=== PATIENT | female | born 1955 | race Caucasian/White ===

== ENCOUNTER 2023-11-13 16:12 | Emergency (ER) | payer OTHER ==
[~2023-11-13] VITALS: Ht 160 cm; Wt 71.7 kg
[~2023-11-13 16:12] MED LIST: MVI PO; ONDA8TAB12 PO; caltrate PO
[2023-11-13 16:52] LABS: BASOPHILS # (AUTO) 0.01 K/uL (0.00-0.20); BASOPHILS % (AUTO) 0.2 % (0.0-5.0); EOSINOPHILS # (AUTO) 0.56 K/uL (0.00-0.70); EOSINOPHILS % (AUTO) 10.2 % (0.0-8.0); HEMATOCRIT 36.1 % (36-48); IMMATURE GRANULOCYTE ABSOLUTE 0.02 K/uL (0-1); MEAN CORPUSCULAR HEMOGLOBIN 28.9 pg (27.0-33.0); MEAN CORPUSCULAR HGB CONC 32.1 g/dL (32.0-36.0); MONOCYTES # (AUTO) 0.4 K/uL (0.1-1.0); MONOCYTES % (AUTO) 6.9 % (3.0-13.0); NEUTROPHILS # (AUTO) 2.5 K/uL (1.8-7.7); NEUTROPHILS % (AUTO) 46.3 % (40.0-77.0); PLATELET COUNT (AUTO) 191 K/uL (130-400); RED BLOOD CELL COUNT(AUTO) 4.01 MIL/uL (4.00-5.50); RED CELL DISTRIBUTION WIDTH 13.2 % (11.0-15.5); WHITE BLOOD COUNT (AUTO) 5.5 K/uL (4.8-10.8)
[2023-11-13 17:03] LABS: CREATININE 0.5 mg/dL (0.5-1.0); INR <= 0.93 (0.85-1.15); POTASSIUM 3.3 mmol/L (3.5-5.1); PROTHROMBIN TIME 10.6 SEC (9.6-11.6)
[2023-11-13 17:05] LABS: PARTIAL THROMBOPLASTIN TIME 24.9 SEC (26.3-35.5)
[2023-11-13 17:07] LABS: ALBUMIN 3.3 g/dL (3.5-5.0); BILIRUBIN,TOTAL 0.3 mg/dL (0.2-1.0); TOTAL PROTEIN, SERUM 6.7 g/dL (6.0-8.3)
[2023-11-13] MEDS ORDERED: IBUP-2077 PO (18:17)
[2023-11-13 18:19] VITALS: BP 141/56; PULSE 72; RESP 17; O2SAT 100
[2023-11-13] MEDS: POTASSIUM BICARB/CIT AC 25 MEQ TABLET.EFF PO ONE (18:32)
== END 2023-11-13 18:37 | disposition home or self-care (01) ==
LOC: EDH 16:12
DX: I82.811 Embolism and thrombosis of superficial veins of right lower extremity (principal); Z79.899 Other long term (current) drug therapy; Z90.49 Acquired absence of other specified parts of digestive tract; Z90.89 Acquired absence of other organs; Z98.890 Other specified postprocedural states; Z88.0 Allergy status to penicillin; Z88.1 Allergy status to other antibiotic agents; Z88.2 Allergy status to sulfonamides; Z88.5 Allergy status to narcotic agent; Z88.6 Allergy status to analgesic agent; Z88.8 Allergy status to other drugs, medicaments and biological substances
CPT/HCPCS: 36415; 80053; 85025; 85610; 85730; 93971

== ENCOUNTER 2024-06-22 14:58 | Inpatient (IN) | payer OTHER, MEDICARE ==
[~2024-06-22] VITALS: Ht 152.4 cm; Wt 70.9 kg
[~2024-06-22 14:58] MED LIST changes: +IBUP-2077 PO; +ONDA-245 PO; -ONDA8TAB12 PO
--- NOTE | 2024-06-22 15:38 | ERN ---
ED Note History of Present Illness Stated Complaint: ABD PAIN Chief Complaint: Abdominal Pain Time Seen by MD: 15:08 Dictation: Patient is here with complaints of having liquid diarrhea stools for four days with periumbilical pain. She denies nausea vomiting no change in urination no fever no chills. She states she has had a partial colon resection by Dr. Raymond several years ago. No chest pain no back pain no SOB. Allergies: Coded Allergies: iodine (Unverified Allergy, Severe, 10/11/23) Penicillins (Unverified Allergy, Unknown, 10/11/23) azithromycin (Unverified Allergy, Unknown, 10/11/23) latex (Unverified Allergy, Unknown, 10/11/23) mirabegron (Unverified Allergy, Unknown, 10/11/23) morphine (Unverified Allergy, Unknown, 10/11/23) nitrofurantoin (Unverified Allergy, Unknown, 10/11/23) sulfamethoxazole (Unverified Allergy, Unknown, 10/11/23) trimethoprim (Unverified Allergy, Unknown, 10/11/23) Home Meds Reported Medications Cholestyramine (with Sugar) (Cholestyramine Packet) 4 Gram Powd.pack, 1 PACKET PO BID for 30 Days, #30 PACKET 0 Refills 06/23/24 Discontinued Reported Medications [Mvi] No Conflict Check, 1 TAB PO DAILY 10/11/23 [caltrate] No Conflict Check, 1 TAB PO DAILY 10/11/23 Ondansetron (Ondansetron Odt) 8 Mg Tab.rapdis, 8 MG PO TID PRN for NAUSEA/VOMITING, TAB 10/11/23 Discontinued Scripts Ibuprofen (Ibuprofen 800 mg Tab) 800 Mg Tab, 800 MG PO Q6H PRN for PAIN, #30 TAB Prov:ANDRE MERAZ STORE RECEIVING CLERK 11/13/23 Past Medical History Past Medical History: Diverticulitis Additional Past Medical Hx: COLITIS Surgical History: Appendectomy, Hysterectomy, Tonsillectomy, Cholecystectomy Surgical History Other: COLON RESECTION History: Not Applicable RN Note Reviewed/Agreed w/PFSH: Yes Review of System Dictation CONSTITUTIONAL: Negative except for HPI HEAD/FACE: Negative except for HPI EENT: Negative except for HPI RESPIRATORY: Negative except for HPI GASTROINTESTINAL/ABDOMINAL: Negative except for HPI periumbilical pain with diarrhea four days GENITOURINARY: Negative except for HPI MUSCULOSKELETAL: Negative except for HPI INTEGUMENTARY: Negative except for HPI NEUROLOGICAL/PSYCH: Negative except for HPI HEMATOLOGIC/LYMPHATIC: Negative except for HPI All Systems Negative, Except as noted above. 13 point review of systems assessed and all negative except for above. Initial Vital Sign VS Vital Signs Date Time Temp Pulse Resp B/P (MAP) Pulse Ox O2 Delivery O2 Flow Rate FiO2 06/22/24 14:59 98.1 68 18 135/60 99 Room Air 0 06/22/24 15:22 21 Physical Exam Dictation Vital Signs reviewed General Appearance: Alert, oriented x 3, moderate acute distress, well devel oped, nourished. Head and Face: non-traumatic. Eyes: PERRL, pink conjunctivas, eyelid no trauma, anterior chamber with arcus se nilis. Ears: Pinnas intact and no signs of trauma or erythema ear canals clear and no discharge TM no erythema Nose: No discharge, no bleeding. Oropharynx: Mouth normal, tongue pink, pharynx clear,no erythema, tonsils no exudates, no abscesses noted, mucous membrane moist Neck: Supple, non-tender, no thyromegaly, no masses, no JVD, no bruits Breast:Deferred Chest:No tenderness, no crepitus, no paradoxical movement, no retractions Lungs:Clear, well-ventilated, symmetric, no rales, no wheezing, no rhonchi, no stridor, good breath sounds bilaterally Heart: Regular rate, regular rhythm, no murmur, no gallops Vascular: no peripheral edema, Abdomen: Soft, positive bowel sounds, nondistended, no guarding, Moderate periumbilical pain tenderness no rebound. Patient has a surgically absent appendix. Rectal: Deferred Genital: Deferred Neurological: Normal speech, motor function intact, sensory function intact Musculoskeletal: Neck nontender, full range of motion, back nontender, full range of motion, Extremities: nontender, full range of motion Skin: Color pink, dry, no turgor, no rash, no lacerations, no abrasions, no contusions. Lymphatic: Deferred Results (Laboratory/Radiology) Laboratory/Radiology Laboratory Tests Test 06/22/24 15:18 06/22/24 17:05 06/22/24 21:30 06/22/24 23:27 White Blood Count 6.9 K/uL (4.8-10.8) Red Blood Count 4.38 MIL/uL (4.00-5.50) Hemoglobin 12.7 g/dL (12.0-16.0) Hematocrit 39.4 % (36-48) Mean Corpuscular Volume 90.0 fL (79-99) Mean Corpuscular Hemoglobin 29.0 pg (27.0-33.0) Mean Corpuscular Hemoglobin Concent 32.2 g/dL (32.0-36.0) Red Cell Distribution Width 13.0 % (11.0-15.5) Platelet Count 187 K/uL (130-400) Mean Platelet Volume 9.7 fL (7.5-10.5) Immature Granulocyte % (Auto) 0.1 % (0-1) Neutrophils (%) (Auto) 53.3 % (40.0-77.0) Lymphocytes (%) (Auto) 39.1 % (21.0-51.0) Monocytes (%) (Auto) 5.5 % (3.0-13.0) Eosinophils (%) (Auto) 1.7 % (0.0-8.0) Basophils (%) (Auto) 0.3 % (0.0-5.0) Neutrophils # (Auto) 3.7 K/uL (1.8-7.7) Lymphocytes # (Auto) 2.7 K/uL (1.0-4.8) Monocytes # (Auto) 0.4 K/uL (0.1-1.0) Eosinophils # (Auto) 0.12 K/uL (0.00-0.70) Basophils # (Auto) 0.02 K/uL (0.00-0.20) Absolute Immature Granulocyte (auto 0.01 K/uL (0-1) Nucleated Red Blood Cells 0.0 % (0.0-0.19) Sodium Level 145 mmol/L (136-145) Potassium Level 4.4 mmol/L (3.5-5.1) Chloride Level 105 mmol/L (101-111) Carbon Dioxide Level 31 mmol/L (21-32) Blood Urea Nitrogen 20 mg/dL (7-18) H Creatinine 0.5 mg/dL (0.5-1.0) Glomerular Filtration Rate Calc 101 mL/min (>90) Random Glucose 103 mg/dL (70-105) Total Calcium 9.7 mg/dL (8.5-10.1) Total Bilirubin 0.5 mg/dL (0.2-1.0) Direct Bilirubin 0.1 mg/dL (0.0-0.3) Aspartate Amino Transf (AST/SGOT) 44 U/L (10-37) H Alanine Aminotransferase (ALT/SGPT) 58 U/L (12-78) Alkaline Phosphatase 88 U/L (50-136) Total Protein 6.9 g/dL (6.0-8.3) Albumin 3.5 g/dL (3.5-5.0) Lipase 38 U/L (16-77) Urine Color STRAW (YELLOW) Urine Appearance CLEAR (CLEAR) Urine pH 5.5 (5.0-8.0) Urine Specific [place] 1.006 (1.001-1.031) Urine Protein NEGATIVE mg/dL (NEGATIVE) Urine Glucose (UA) NEGATIVE mg/dL (NEGATIVE) Urine Ketones NEGATIVE mg/dL (NEGATIVE) Urine Occult Blood NEGATIVE (NEGATIVE) Urine Nitrate NEGATIVE (NEGATIVE) Urine Bilirubin NEGATIVE mg/dL (NEGATIVE) Urine Urobilinogen 0.2 mg/dL (0.2-1.0) Urine Leukocyte Esterase NEGATIVE Felicia/uL Whole Blood Glucose 82 MG/DL (70-110) Influenza Type A Antigen Negative For Type A Influenza Type B Antigen Negative For Type B SARS-CoV-2, RNA, NAAT NEGATIVE SARS CoV-2 Test 06/23/24 04:15 06/23/24 11:07 06/23/24 15:43 White Blood Count 5.1 K/uL (4.8-10.8) # Red Blood Count 4.07 MIL/uL (4.00-5.50) Hemoglobin 12.0 g/dL (12.0-16.0) Hematocrit 36.8 % (36-48) Mean Corpuscular Volume 90.4 fL (79-99) Mean Corpuscular Hemoglobin 29.5 pg (27.0-33.0) Mean Corpuscular Hemoglobin Concent 32.6 g/dL (32.0-36.0) Red Cell Distribution Width 12.8 % (11.0-15.5) Platelet Count 143 K/uL (130-400) Mean Platelet Volume 10.0 fL (7.5-10.5) Nucleated Red Blood Cells 0.0 % (0.0-0.19) Sodium Level 144 mmol/L (136-145) Potassium Level 3.9 mmol/L (3.5-5.1) Chloride Level 108 mmol/L (101-111) Carbon Dioxide Level 28 mmol/L (21-32) Blood Urea Nitrogen 11 mg/dL (7-18) Creatinine 0.5 mg/dL (0.5-1.0) Glomerular Filtration Rate Calc 101 mL/min (>90) Random Glucose 77 mg/dL (70-105) Hemoglobin A1c 6.1 % (4.0-6.0) H Estimated Average Glucose (eAG) 128 mg/dL (70-126) H Total Calcium 9.1 mg/dL (8.5-10.1) Phosphorus Level 4.3 mg/dL (2.5-4.9) Magnesium Level 1.90 mg/dL (1.80-2.40) Total Bilirubin 0.8 mg/dL (0.2-1.0) # Aspartate Amino Transf (AST/SGOT) 29 U/L (10-37) Alanine Aminotransferase (ALT/SGPT) 48 U/L (12-78) Alkaline Phosphatase 78 U/L (50-136) Total Protein 6.0 g/dL (6.0-8.3) Albumin 3.0 g/dL (3.5-5.0) L Thyroid Stimulating Hormone (TSH) 5.23 uIU/mL (0.36-3.74) H Whole Blood Glucose 85 MG/DL (70-110) 189 MG/DL (70-110) #H CT ABDOMEN/PELVIS W/O CONTRAST CLINICAL HISTORY: Periumbilical pain tenderness with liquid stools for four days COMPARISON: None TECHNIQUE: Sequential axial images of abdomen and pelvis without contrast and with sagittal and coronal reconstructions. CT was performed with one or more of the following dose reduction techniques: automated exposure control, adjustment of the mA and/or kV according to patient size, or use of iterative reconstruction technique FINDINGS: Lung bases are clear. There is mild pneumobilia secondary to prior cholecystectomy. The spleen is unremarkable. The pancreas and adrenal glands are unremarkable. The kidneys are within normal limits. Note is made of stable bilateral parapelvic cysts. The bladder is unremarkable. There are fluid-filled loops of small bowel and partially fluid filled loops of large bowel with no identified bowel obstruction. The uterus is surgically absent. Note is made of clips in the anterior pelvic wall from prior surgery. There is no free air or free fluid. There is no bulky abdominal or retroperitoneal lymphadenopathy. Note is made of mild diffuse degenerative changes of spine. IMPRESSION: Findings most consistent with enteritis. Pneumobilia from prior cholecystectomy. Labs Reviewed?: Yes ED Course ED Course Orders Procedure Category Date Status Time Cbc With Differential LAB 06/22/24 Complete 15:29 Urinalysis Profile LAB 06/22/24 Complete 15:29 Stool Panel Gi By Pcr LAB 06/22/24 In Process 15:29 0.9%Nacl 1000ml (Ns PHA 06/22/24 Complete 1000ml) 15:30 Ketorolac PHA 06/22/24 Complete Tromethamine 30mg/Ml 15:30 Stool Culture JUNIOR 06/22/24 In Process 15:29 Ct Abdomen/Pelvis W/O CT 06/22/24 Resulted Contrast 15:29 Lipase LAB 06/22/24 Complete 15:29 Basic Metabolic Panel LAB 06/22/24 Complete 15:29 Edm Admit Bridge Order ADM 06/22/24 Transmitted 18:34 Gastroenterology CONPHYSVC 06/22/24 Transmitted Consult 18:38 Admit Orders ADM 06/22/24 Transmitted 18:47 Vital Signs Every 4 CPOE 06/22/24 Transmitted Hours 19:11 I&O Q Shift CPOE 06/22/24 Transmitted 19:11 Activity: Ad Gricelda CPOE 06/22/24 Transmitted 19:11 Heart Healthy Diet DIET 06/23/24 Transmitted Breakfast O2 Order RT 06/22/24 Transmitted 19:11 Cbc Without LAB 06/23/24 Complete Differential 04:00 Lactated Ringers PHA 06/22/24 In Process 1000ml (Lactated 19:30 Enoxaparin Sodium 40 PHA 06/23/24 In Process Mg/0.4 Ml (Lovenox) 09:00 Acetaminophen 325 Tab PHA 06/22/24 In Process (Tylenol 325mg Tab 19:30 Acetaminophen 650mg PHA 06/22/24 In Process Supp (Tylenol 650mg 19:30 Docusate Sodium 100 PHA 06/22/24 In Process Mg Cap (Colace 100mg 19:30 Temazepam 15 Mg Cap PHA 06/22/24 In Process (Restoril 15 Mg Cap) 19:30 Ondansetron 4mg Inj PHA 06/22/24 In Process (Zofran 4mg Inj) 19:30 Hydralazine 20mg Inj PHA 06/22/24 In Process (Apresoline 20mg In 19:30 Hydromorphone 1 Mg PHA 06/22/24 In Process Inj (Dilaudid 1mg Inj 19:30 Initiate CURLY 06/22/24 In Process Hyperglycemia Protoco 19:11 Insulin Regular, PHA 06/22/24 In Process Human 3ml (Humulin R 21:00 Lipase LAB 06/22/24 Complete 19:16 Hepatic Function Panel LAB 06/22/24 Complete 19:16 Influenza Type A & B, LAB 06/22/24 Complete Rapid 19:16 Covid Rna Naat LAB 06/22/24 Complete 19:16 Initiate Hypoglycemia CURLY 06/22/24 In Process Protocol 19:16 Dextrose 50%-Water PHA 06/22/24 In Process (D50w) 19:30 Glucagon 1mg Kit PHA 06/22/24 In Process (Glucagon 1mg Kit) 19:30 Magnesium 2gm Premix PHA 06/22/24 In Process 50ml (Magnesium 2gm 19:30 Initiate Po CURLY 06/22/24 In Process Hypokalemia Protoc 19:16 Potassium Chloride PHA 06/22/24 In Process 20meq/100ml (Potassiu 19:30 Potassium Chl 10% PHA 06/22/24 In Process Elixir 20meq (Kcl 10% 19:30 Potassium Chloride PHA 06/22/24 In Process 20meq Er (K-Dur/Klor- 19:30 Notify Physician If CPOE 06/22/24 Transmitted There Is 19:16 Notify Md On The Next CPOE 06/22/24 Transmitted 19:16 Notify Md On The CPOE 06/22/24 Transmitted Next(Cont.) 19:16 Hemoglobin A1c LAB 06/23/24 Complete 04:00 Pantoprazole 40mg Inj PHA 06/22/24 In Process (Protonix 40mg Inj 21:00 *Nursing CPOE 06/22/24 Transmitted Communication: 19:22 Lipase LAB 06/22/24 Complete 15:18 Simethicone (Mylicon) PHA 06/22/24 In Process 21:30 Metronidazole PHA 06/22/24 In Process 500mg/100ml Bag 22:30 Comprehensive LAB 06/23/24 Complete Metabolic Panel 04:00 Magnesium LAB 06/23/24 Complete 04:15 Phosphorus LAB 06/23/24 Complete 04:15 Thyroid Stimulating LAB 06/23/24 Complete Hormone 04:15 Transfer To: [facility] 06/23/24 Transmitted 12:34 Magnesium LAB 06/24/24 Verified 04:00 Phosphorus LAB 06/24/24 Verified 04:00 Cbc With Differential LAB 06/24/24 Verified 04:00 Cbc With Differential LAB 06/25/24 Verified 04:00 Cbc With Differential LAB 06/26/24 Verified 04:00 Basic Metabolic Panel LAB 06/24/24 Verified 04:00 Basic Metabolic Panel LAB 06/25/24 Verified 04:00 Basic Metabolic Panel LAB 06/26/24 Verified 04:00 Current Medications Medications (Trade) Dose Ordered Sig/Domenica Route PRN Reason Start Time Stop Time Status Last Admin Dose Admin Ketorolac Tromethamine (toRADol) 30 mg ONCE ONCE IVP 06/22/24 15:30 06/22/24 15:31 DC 06/22/24 15:54 Sodium Chloride 1,000 ml @ 0 mls/hr ONCE ONCE IV 06/22/24 15:30 06/22/24 15:31 DC 06/22/24 15:54 Vital Signs Date Time Temp Pulse Resp B/P (MAP) Pulse Ox O2 Delivery O2 Flow Rate FiO2 06/23/24 11:54 98.8 67 18 118/62 96 Room Air 06/23/24 08:10 96 Room Air* 0 06/23/24 08:00 98.4 56 17 126/75 96 Room Air 06/23/24 04:09 98.1 54 17 133/68 100 Room Air 06/23/24 00:20 97.9 59 20 130/64 99 Room Air 06/23/24 00:00 Room Air* 0 06/22/24 23:49 97.9 56 18 120/61 97 Room Air* 0 06/22/24 19:45 97.7 54 18 125/63 96 Room Air* 0 06/22/24 15:22 98.1 65 18 132/53 98 Room Air* 0 06/22/24 14:59 98.1 68 18 135/60 99 Room Air 0 1728, patient continues to be in pain despite fluids and ketorolac. She has allergies to morphine and states she has had three diarrhea stools with urine since she has been here however we have not been able to collect a specimen. I advised patient I will admit her for intractable abdominal pain diarrhea so that they can get a specimen and she can get GI consultation tomorrow. She agreed 1834, spoke with [facility] hospitalist and reviewed CT labs and interventions for pain. She accepted patient. She is aware we are pending stools for culture C diff and GI PCR Medical Decision Making MDM MDM: Differential diagnosis: Diarrhea versus infectious diarrhea versus urinary tract infection/electrolyte imbalance/dehydration/diverticulitis Rationale: Tests considered and ordered secondary to shared decision making include: labs and radiology Previous outside records reviewed: Old ER visits. Risk of complication and/or morbidity or mortality of patient management: Mild Medications-Per medication reconciliation Need for hospitalization: Patient does meet criteria for hospitalization. We will admit patient for intractable abdominal pain/cramping and diarrhea Need for emergency major/minor surgery: No There are no social concerns with this patient. Prescription drug management Prescriptions will include symptomatic care Patient's prior external medical records from other ER visits were reviewed by me as indicated. Prior testing and results from previous visits were reviewed. Prior tests were taken into account with medical decision making and resource utilization, independent historian/historians were used to obtain complete medical history. I independently interpreted the test that were performed, results were reviewed by me and considered findings on radiology if ordered. Medical management and examination interpretation discussions were had by me with other qualified healthcare professionals as indicated for the patient's care. DX & DISP Disposition: Inpatient Decision to Admit Time: 17:28 Departure Impression: Primary Impression: Intractable diarrhea Additional Impressions: Intractable abdominal pain, Dehydration Condition: Stable Referrals: DILMA CLEMENTE M.D. (PCP) Time of Disposition: 17:29 I have reviewed the case, and I agree with, Diagnosis and Plan I performed this substantive portion of this visit. I have reviewed and personally made and approve the management plan that is documented in the note by myself or the RAZA. I acknowledge full responsibility for the patient's management plan. ANDRE MERAZ NP Jun 22, 2024 15:38 JOBY REA MD Jun 23, 2024 18:33
[2024-06-22 15:44] LABS: BASOPHILS # (AUTO) 0.02 K/uL (0.00-0.20); BASOPHILS % (AUTO) 0.3 % (0.0-5.0); EOSINOPHILS # (AUTO) 0.12 K/uL (0.00-0.70); EOSINOPHILS % (AUTO) 1.7 % (0.0-8.0); HEMATOCRIT 39.4 % (36-48); IMMATURE GRANULOCYTE ABSOLUTE 0.01 K/uL (0-1); LYMPHOCYTES # (AUTO) 2.7 K/uL (1.0-4.8); LYMPHOCYTES % (AUTO) 39.1 % (21.0-51.0); MEAN CORPUSCULAR HGB CONC 32.2 g/dL (32.0-36.0); MONOCYTES # (AUTO) 0.4 K/uL (0.1-1.0); MONOCYTES % (AUTO) 5.5 % (3.0-13.0); NEUTROPHILS # (AUTO) 3.7 K/uL (1.8-7.7); NEUTROPHILS % (AUTO) 53.3 % (40.0-77.0); PLATELET COUNT (AUTO) 187 K/uL (130-400); RED BLOOD CELL COUNT(AUTO) 4.38 MIL/uL (4.00-5.50); WHITE BLOOD COUNT (AUTO) 6.9 K/uL (4.8-10.8)
[2024-06-22] MEDS: ketOROlac 30MG VIAL (30MG/ML) IVP ONE (15:54)
[2024-06-22] MEDS: 0.9%NACL 1000ML 1,000 ML IV ONE (15:54)
[2024-06-22 16:00] LABS: CREATININE 0.5 mg/dL (0.5-1.0); POTASSIUM 4.4 mmol/L (3.5-5.1)
--- NOTE | 2024-06-22 17:03 | HMCIMG ---
CT ABDOMEN/PELVIS W/O CONTRAST CLINICAL HISTORY: Periumbilical pain tenderness with liquid stools for four days COMPARISON: None TECHNIQUE: Sequential axial images of abdomen and pelvis without contrast and with sagittal and coronal reconstructions. CT was performed with one or more of the following dose reduction techniques: automated exposure control, adjustment of the mA and/or kV according to patient size, or use of iterative reconstruction technique FINDINGS: Lung bases are clear. There is mild pneumobilia secondary to prior cholecystectomy. The spleen is unremarkable. The pancreas and adrenal glands are unremarkable. The kidneys are within normal limits. Note is made of stable bilateral parapelvic cysts. The bladder is unremarkable. There are fluid-filled loops of small bowel and partially fluid filled loops of large bowel with no identified bowel obstruction. The uterus is surgically absent. Note is made of clips in the anterior pelvic wall from prior surgery. There is no free air or free fluid. There is no bulky abdominal or retroperitoneal lymphadenopathy. Note is made of mild diffuse degenerative changes of spine. IMPRESSION: Findings most consistent with enteritis. Pneumobilia from prior cholecystectomy.
[2024-06-22 17:14] LABS: APPEARANCE,URINE CLEAR (CLEAR); BILIRUBIN,URINE NEGATIVE (NEGATIVE); GLUCOSE, URINE (UA) NEGATIVE (NEGATIVE); KETONES,URINE NEGATIVE (NEGATIVE); LEUKOCYTE ESTERASE ,URINE NEGATIVE Leu/uL (NEGATIVE); NITRATE,URINE NEGATIVE (NEGATIVE); OCCULT BLOOD,URINE NEGATIVE (NEGATIVE); PH,URINE 5.5 (5.0-8.0); PROTEIN,URINE NEGATIVE (NEGATIVE); UROBILINOGEN,URINE 0.2 mg/dL (0.2-1.0)
[2024-06-22 17:16] LABS: ADD UA MICROSCOPIC NO; COLOR,URINE STRAW (YELLOW)
[2024-06-22] MEDS ORDERED: TEMAZepam 15 MG CAPSULE PO PRN (19:30)
[2024-06-22] MEDS ORDERED: GLUCAGON 1MG KIT 1 MG ML IM PRN (19:30)
[2024-06-22] MEDS ORDERED: acetaMINOPHEN 650 MG SUPPOSITORY RC PRN (19:30)
[2024-06-22] MEDS ORDERED: doCUSate SODIUM 100 MG CAP PO PRN (19:30)
[2024-06-22] MEDS ORDERED: MAGNESIUM 2GM PREMIX 50ML 50 ML IV PRN (19:30)
[2024-06-22] MEDS ORDERED: PoTASSium chloRIDE 20MEQ/100ML 100 ML IV PRN (19:30)
[2024-06-22] MEDS ORDERED: hydrALAZine 20MG/ML VIAL IV PRN (19:30)
[2024-06-22] MEDS ORDERED: ondanSETRON 4MG INJ IVP PRN (19:30)
[2024-06-22] MEDS ORDERED: hydroMORPHone 1 MG INJ IVP PRN (19:30)
[2024-06-22] MEDS ORDERED: DEXTROSE 50%-WATER 50 ML DISP.SYRIN IV PRN (19:30)
[2024-06-22] MEDS ORDERED: acetaMINOPHEN 325 MG TAB PO PRN (19:30)
[2024-06-22] MEDS ORDERED: PoTASSium chl 10% ELIXIR 20MEQ 20 MEQ/15 ML UDCUP PO PRN (19:30)
[2024-06-22 19:50] LABS: ALBUMIN 3.5 g/dL (3.5-5.0); BILIRUBIN,DIRECT 0.1 mg/dL (0.0-0.3); BILIRUBIN,TOTAL 0.5 mg/dL (0.2-1.0); TOTAL PROTEIN, SERUM 6.9 g/dL (6.0-8.3)
[2024-06-22] MEDS: INSULIN humuLIN R 100 UNIT/ML 3ML SQ SCH (21:00)
--- NOTE | 2024-06-22 21:22 | NUR ---
[employer] ZIFF DAVIS AT BEDSIDE
--- NOTE | 2024-06-22 21:44 | HP ---
[facility] HISTORY AND PHYSICAL Date of Service: Jun 22, 2024 Time of Service: 21:43 PCP: Savanah Lowry NP Outpatient GI: Dr. Arias Inpatient GI PCP: Dr. Reyes and Dr. Brain Caban HISTORY OF PRESENT ILLNESS: Ms. Moore is a 69-year-old female with a history of diverticulitis, diverticulosis, pancreatitis, colitis, IBS, colectomy, partial colon resection who presented to [facility] for evaluation of liquid diarrhea stools for four days with periumbilical and upper abdominal pain. The patient reported that the intermittent upper abdominal pain feels like a ball of gas develops then gets a twisting sensation then it goes away. She has had surgical history of appendectomy, hysterectomy, cholecystectomy, colon resection, and tonsillectomy. She stated that the colectomy in [address] Raymond several years ago. Her GI doctor is Dr. Arias at [facility]. The colon resection was done by Dr. Raymond. Patient denied any nausea, vomiting, change in urine, fever, chills, any other pain, problem or concern. ED provider reports that patient continued with pain despite Toradol. ED also administered [address] abdomen and pelvis without contrast: Findings most consistent with enteritis. Pneumobilia from prior cholecystectomy. UA negative. Labs: CBC WNL. Abnormal lab results: BUN 20, AST 44. ED provider request patient be admitted with the diagnosis intractable abdominal pain intractable diarrhea, and dehydration. Patient was admitted under the gavi lyst team. I assessed the patient at bedside in room ED 18. Patient appeared comfortable, breathing was even unlabored, in no distress. Patient denied pain during my evaluation. Patient reports the pain is intermittent and when it comes it is severe. Patient states she has been on cholestyramine for a while already which helps her diarrhea but has not work this time. She reports that she took Imodium also with no improvement of the diarrhea. I informed the patient of labs, diagnostics, and plan of care. I addressed her multiple questions. She verbalized understanding and is in agreement with plan. Plan and assessment are listed below. REVIEW OF SYSTEMS 12-point ROS reviewed with patient. All pertinent positives mentioned above. Otherwise negative, non-pertinent, noncontributory. PAST MEDICAL HISTORY: As mentioned above PAST SURGICAL HISTORY: Appendectomy, hysterectomy, tonsillectomy, cholecystectomy, colon resection PAST SOCIAL HISTORY: Patient denied: Alcohol, tobacco, illicit drug use FAMILY HISTORY: Noncontributory Coded Allergies: iodine (Unverified Allergy, Severe, 10/11/23) Penicillins (Unverified Allergy, Unknown, 10/11/23) azithromycin (Unverified Allergy, Unknown, 10/11/23) latex (Unverified Allergy, Unknown, 10/11/23) mirabegron (Unverified Allergy, Unknown, 10/11/23) morphine (Unverified Allergy, Unknown, 10/11/23) nitrofurantoin (Unverified Allergy, Unknown, 10/11/23) sulfamethoxazole (Unverified Allergy, Unknown, 10/11/23) trimethoprim (Unverified Allergy, Unknown, 10/11/23) PHYSICAL EXAM GENERAL APPEARANCE: The patient is awake, alert, and oriented, in no acute cardiopulmonary distress. NEUROLOGICAL: Cranial nerves II-XII grossly intact. Motor is 5/5 in bilateral upper and lower extremities proximal to distal. No sensory deficits. HEENT: Face is symmetric. Pupils are equal and reactive. Extraocular movements are intact. NECK: Supple. No JVD. No thyromegaly. No submental, submandibular, pre- /postauricular, occipital or supraclavicular lymphadenopathy. CHEST: Normal chest expansion. No Telemetry. LUNGS: Absence of any rales, rhonchi or any wheezing. CARDIOVASCULAR: Regular. S1 and S2 normal. No appreciable rubs, murmurs or gallops. ABDOMEN: Soft and nondistended. Generalized abdominal tenderness. There is no rebound, voluntary guarding, or rigidity. : Deferred. No Araiza. EXTREMITIES: Non-edematous and not cyanotic. No clubbing. Good capillary refill. SKIN: No skin breakdown. Vital Sign (Last 24 Hours) 06/22/24 15:22 Temp 98.1 Pulse 65 Resp 18 B/P (MAP) 132/53 Pulse Ox 98 O2 Delivery Room Air* O2 Flow Rate 0 FiO2 21 LABS: Laboratory: Test 06/22/24 21:30 06/22/24 17:05 06/22/24 15:18 Range/Units Whole Blood Glucose 82 70-110 MG/DL Urine Color STRAW YELLOW Urine Appearance CLEAR CLEAR Urine pH 5.5 5.0-8.0 Urine Specific [place] 1.006 1.001-1.031 Urine Protein NEGATIVE NEGATIVE mg/dL Urine Glucose (UA) NEGATIVE NEGATIVE mg/dL Urine Ketones NEGATIVE NEGATIVE mg/dL Urine Occult Blood NEGATIVE NEGATIVE Urine Nitrate NEGATIVE NEGATIVE Urine Bilirubin NEGATIVE NEGATIVE mg/dL Urine Urobilinogen 0.2 0.2-1.0 mg/dL Urine Leukocyte Esterase NEGATIVE NEGATIVE Felicia/uL White Blood Count 6.9 4.8-10.8 K/uL Red Blood Count 4.38 4.00-5.50 MIL/uL Hemoglobin 12.7 12.0-16.0 g/dL Hematocrit 39.4 36-48 % Mean Corpuscular Volume 90.0 79-99 fL Mean Corpuscular Hemoglobin 29.0 27.0-33.0 pg Mean Corpuscular Hemoglobin Concent 32.2 32.0-36.0 g/dL Red Cell Distribution Width 13.0 11.0-15.5 % Platelet Count 187 130-400 K/uL Mean Platelet Volume 9.7 7.5-10.5 fL Immature Granulocyte % (Auto) 0.1 0-1 % Neutrophils (%) (Auto) 53.3 40.0-77.0 % Lymphocytes (%) (Auto) 39.1 21.0-51.0 % Monocytes (%) (Auto) 5.5 3.0-13.0 % Eosinophils (%) (Auto) 1.7 0.0-8.0 % Basophils (%) (Auto) 0.3 0.0-5.0 % Neutrophils # (Auto) 3.7 1.8-7.7 K/uL Lymphocytes # (Auto) 2.7 1.0-4.8 K/uL Monocytes # (Auto) 0.4 0.1-1.0 K/uL Eosinophils # (Auto) 0.12 0.00-0.70 K/uL Basophils # (Auto) 0.02 0.00-0.20 K/uL Absolute Immature Granulocyte (auto 0.01 0-1 K/uL Nucleated Red Blood Cells 0.0 0.0-0.19 % Sodium Level 145 136-145 mmol/L Potassium Level 4.4 3.5-5.1 mmol/L Chloride Level 105 101-111 mmol/L Carbon Dioxide Level 31 21-32 mmol/L Blood Urea Nitrogen 20 H 7-18 mg/dL Creatinine 0.5 0.5-1.0 mg/dL Glomerular Filtration Rate Calc 101 >90 mL/min Random Glucose 103 70-105 mg/dL Total Calcium 9.7 8.5-10.1 mg/dL Total Bilirubin 0.5 0.2-1.0 mg/dL Direct Bilirubin 0.1 0.0-0.3 mg/dL Aspartate Amino Transf (AST/SGOT) 44 H 10-37 U/L Alanine Aminotransferase (ALT/SGPT) 58 12-78 U/L Alkaline Phosphatase 88 50-136 U/L Total Protein 6.9 6.0-8.3 g/dL Albumin 3.5 3.5-5.0 g/dL Lipase 38 16-77 U/L Current Medications Medications (Trade) Dose Ordered Sig/Domenica Route PRN Reason Start Time Stop Time Status Last Admin Dose Admin Acetaminophen (TYLenol 325MG TAB) 650 mg Q6H PRN PO FEVER/MILD PAIN LEVEL 1-3 06/22/24 19:30 07/22/24 19:29 Acetaminophen (TYLenol 650MG SUPPOSITORY) 650 mg Q6H PRN RC FEVER / MILD PAIN 1-3 IF NPO 06/22/24 19:30 07/22/24 19:29 Dextrose (D50w) 50 ml AD PRN IV HYPOGLYCEMIA PROTOCOL 06/22/24 19:30 07/22/24 19:29 Docusate Sodium (COLace 100MG CAP) 100 mg BID PRN PO c 06/22/24 19:30 07/22/24 19:29 Enoxaparin Sodium (Lovenox) 40 mg DAILY SQ 06/23/24 09:00 07/23/24 08:59 Glucagon (Glucagon 1mg Kit) 1 mg AD PRN IM HYPOGLYCEMIA PROTOCOL 06/22/24 19:30 07/22/24 19:29 Hydralazine HCl (APRESOLine 20MG INJ) 10 mg Q2H PRN IV SBP GREATER THAN 160 06/22/24 19:30 07/22/24 19:29 Hydromorphone HCl (DiLAUDid 1MG INJ) 0.5 mg Q4H PRN IVP SEVERE PAIN (7-10) 06/22/24 19:30 06/27/24 19:29 Insulin Human Regular (humuLIN R 100 UNIT/ML 3ML) INSULIN SLIDING SCAL... ACHS SQ 06/22/24 21:00 07/22/24 20:59 Lactated Ringer's 1,000 ml @ 100 mls/hr Q10H IV 06/22/24 19:30 07/22/24 19:29 Magnesium Sulfate 50 ml @ 0 mls/hr PROTOCOL PRN IV MAGNESIUM PROTOCOL 06/22/24 19:30 07/22/24 19:29 Ondansetron HCl (zoFRAN 4MG INJ) 4 mg Q6H PRN IVP NAUSEA/VOMITING 06/22/24 19:30 07/22/24 19:29 Pantoprazole Sodium (PROTonix 40MG INJ) 40 mg BID IVP 06/22/24 21:00 07/22/24 20:59 Potassium Chloride 100 ml @ 100 mls/hr AD PRN IV POTASSIUM PROTOCOL 06/22/24 19:30 07/22/24 19:29 Potassium Chloride (K-Dur/Klor-Con 20meq) 20 meq AD PRN PO POTASSIUM PROTOCOL 06/22/24 19:30 07/22/24 19:29 Potassium Chloride (KCl 10% Elixir 20meq/15ml) 20 meq AD PRN PO POTASSIUM PROTOCOL 06/22/24 19:30 07/22/24 19:29 Simethicone (Mylicon) 120 mg PCHS PRN PO GI GAS 06/22/24 21:30 07/22/24 21:29 Temazepam (restORIL 15 MG CAP) 15 mg HS PRN PO INSOMNIA/SLEEP 06/22/24 19:30 07/22/24 19:29 DIAGNOSTICS / RADIOLOGY: [ ] ASSESSMENT: Pneumobilia from prior cholecystectomy, per CT abdomen 06/22/2024 Enteritis, per CT abdomen 06/22/2024 Intractable abdominal pain, POA Intractable diarrhea, POA Dehydration, POA Chronic problem list: Diverticulitis, diverticulosis, pancreatitis, colitis, IBS, chronic idiopathic constipation, colectomy, partial colon resection, osteoporosis, urinary incontinence, hemorrhoids PLAN: Admit to medical floor with telemetry monitoring. IV gentle hydration, LR at 100 ml/ hour. Send stool for C diff. (follow stool for: cultures stool panel GI by PCR sent by ED) Start Flagyl 500 mg IV q.8 hours, empiric treatment. Consult GI for pneumobilia, intractable bone pain, history of a multiple chronic abdominal diseases. DVT and GI prophylaxis: Lovenox and Protonix P.r.n. medications for: Pain management, nausea, vomiting, constipation, fever, hypertension Glucometer checks a.c. and HS with insulin regular sliding scale. Blood pressure checks every 4 hours and as needed. Reconcile home medications once available. Monitor renal and liver function. Monitor electrolytes and treat accordingly. A.m. labs: CBC, CMP, Mag, phos, TSH, A1c ADVANCED CARE PLANNING 1. Which of the following were discussed? Hospice Care - No Therapeutic options - No Advance Directives - Yes Other discussions - 2. Discussed with who? Patient 3. Voluntary nature of this service was explained to the patient? Yes 4. Amount of time spent - __ over35 minutes 5. Reviewed by Physician? (if this service was performed by NPP) Yes Patient seen and examined by me. Agree with note by BACK FILLER OPERATOR SEE ADDITIONAL ORDERS PER CHART DISCUSSED WITH NURSING STAFF CAREY ALLISON W[employer] PIPE LAYER Jun 22, 2024 21:44
[2024-06-22] MEDS: LACTATED RINGERS 1000ML 1,000 ML IV SCH (22:00)
[2024-06-22] MEDS: SIMETHICONE 80 MG TAB.CHEW PO PRN (22:00)
[2024-06-22] MEDS: PANTOPrazole 40 MG/VIAL IVP SCH (22:00)
[2024-06-22 23:49] LABS: SARS-CoV-2, RNA, NAAT NEGATIVE SARS CoV-2 (NEGATIVE)
[2024-06-22 23:55] LABS: INFLUENZA TYPE A Negative For Type A (NEGATIVE); INFLUENZA TYPE B Negative For Type B (NEGATIVE)
--- NOTE | 2024-06-22 23:59 | NUR ---
REPORT GIVEN TO SUGEY WILLS
[2024-06-23] VITALS (7 sets, daily range): BP systolic 110–133; BP diastolic 53–75; PULSE 54–67; RESP 17–20; TEMP 97.8–98.7; O2SAT 96
[2024-06-23] MEDS: metRONIDazole 500MG/100ML BAG 100 ML IVPB SCH (00:01)
[2024-06-23 04:30] LABS: HEMATOCRIT 36.8 % (36-48); MEAN CORPUSCULAR HEMOGLOBIN 29.5 pg (27.0-33.0); MEAN CORPUSCULAR HGB CONC 32.6 g/dL (32.0-36.0); MEAN CORPUSCULAR VOLUME 90.4 fL (79-99); RED BLOOD CELL COUNT(AUTO) 4.07 MIL/uL (4.00-5.50); RED CELL DISTRIBUTION WIDTH 12.8 % (11.0-15.5); WHITE BLOOD COUNT (AUTO) 5.1 K/uL (4.8-10.8)
[2024-06-23 04:41] LABS: HEMOGLOBIN A1C 6.1 % (4.0-6.0)
[2024-06-23 04:53] LABS: BILIRUBIN,TOTAL 0.8 mg/dL (0.2-1.0); CREATININE 0.5 mg/dL (0.5-1.0); MAGNESIUM 1.9 mg/dL (1.80-2.40); PHOSPHORUS 4.3 mg/dL (2.5-4.9); POTASSIUM 3.9 mmol/L (3.5-5.1); THYROID STIMULATING HORMONE 5.23 uIU/mL (0.36-3.74)
[2024-06-23] MEDS: ENOXAPARIN SODIUM 40 MG/0.4 ML SYRINGE SQ SCH (08:24)
[2024-06-23] MEDS ORDERED: CHOL4POW4 PO (08:27)
--- NOTE | 2024-06-23 08:34 | NUR ---
HOME MEDICATIONS HOME MED ENTERED PENDING RECONCILIATION.
--- NOTE | 2024-06-23 09:59 | NUR ---
DCP: HOME met with pt who is a and receives medical care and meds at local [place], Dr Lowry. Pt reports she lives independently at home with her Maxim [phone], daughter Gwen [phone] and 2 grandchildren. Pt has a cane, bsc and shower she uses as needed. No HH or HD services. Pt denies dc needs and will return home at al. Addendum: 06/23/24 at 1002 by JESS MADRID Amended: Links added.
--- NOTE | 2024-06-23 10:15 | NUR ---
GI CONSULT CONTACTED BEREKET JORDAN WITH GI TEAM REGARDING PENDING CONSULT FOR PATIENT. RE: PNEUMOBILIA ENTERITIS. VOICED UNDERSTANDING, NO NEW ORDERS GIVEN AT THIS TIME. WILL ROUND LATER THIS PM.
--- NOTE | 2024-06-23 15:31 | PN ---
[facility] PROGRESS NOTE Date of Service: Jun 23, 2024 Time of Service: 15:27 SUBJECTIVE: 06/23 patient seen at bedside, no acute events overnight. She reports proximally 12 episodes of diarrhea yesterday. Stool studies are still pending, if negative we will start loperamide. Vitals and labs relatively unremarkable REVIEW OF SYSTEMS 12-point ROS reviewed with patient. All pertinent positives mentioned above. Otherwise negative, non-pertinent, noncontributory. PHYSICAL EXAM GENERAL APPEARANCE: The patient is awake, alert, and oriented, in no acute cardiopulmonary distress. NEUROLOGICAL: Cranial nerves II-XII grossly intact. Motor is 5/5 in bilateral upper and lower extremities proximal to distal. No sensory deficits. HEENT: Face is symmetric. Pupils are equal and reactive. Extraocular movements are intact. NECK: Supple. No JVD. No thyromegaly. No submental, submandibular, pre- /postauricular, occipital or supraclavicular lymphadenopathy. CHEST: Normal chest expansion. No Telemetry. LUNGS: Absence of any rales, rhonchi or any wheezing. CARDIOVASCULAR: Regular. S1 and S2 normal. No appreciable rubs, murmurs or gallops. ABDOMEN: Soft and nondistended. Generalized abdominal tenderness. There is no rebound, voluntary guarding, or rigidity. : Deferred. No Araiza. EXTREMITIES: Non-edematous and not cyanotic. No clubbing. Good capillary refill. SKIN: No skin breakdown. Vital Signs (last 8hr) Date Time Temp Pulse Resp B/P (MAP) Pulse Ox O2 Delivery O2 Flow Rate FiO2 06/23/24 11:54 98.8 67 18 118/62 96 Room Air 06/23/24 08:00 98.4 56 17 126/75 96 Room Air LABS: Laboratory: Test 06/23/24 11:07 06/23/24 04:15 06/22/24 23:27 06/22/24 17:05 Range/Units Whole Blood Glucose 85 70-110 MG/DL White Blood Count 5.1 # 4.8-10.8 K/uL Red Blood Count 4.07 4.00-5.50 MIL/uL Hemoglobin 12.0 12.0-16.0 g/dL Hematocrit 36.8 36-48 % Mean Corpuscular Volume 90.4 79-99 fL Mean Corpuscular Hemoglobin 29.5 27.0-33.0 pg Mean Corpuscular Hemoglobin Concent 32.6 32.0-36.0 g/dL Red Cell Distribution Width 12.8 11.0-15.5 % Platelet Count 143 130-400 K/uL Mean Platelet Volume 10.0 7.5-10.5 fL Nucleated Red Blood Cells 0.0 0.0-0.19 % Sodium Level 144 136-145 mmol/L Potassium Level 3.9 3.5-5.1 mmol/L Chloride Level 108 101-111 mmol/L Carbon Dioxide Level 28 21-32 mmol/L Blood Urea Nitrogen 11 7-18 mg/dL Creatinine 0.5 0.5-1.0 mg/dL Glomerular Filtration Rate Calc 101 >90 mL/min Random Glucose 77 70-105 mg/dL Hemoglobin A1c 6.1 H 4.0-6.0 % Estimated Average Glucose (eAG) 128 H 70-126 mg/dL Total Calcium 9.1 8.5-10.1 mg/dL Phosphorus Level 4.3 2.5-4.9 mg/dL Magnesium Level 1.90 1.80-2.40 mg/dL Total Bilirubin 0.8 # 0.2-1.0 mg/dL Aspartate Amino Transf (AST/SGOT) 29 10-37 U/L Alanine Aminotransferase (ALT/SGPT) 48 12-78 U/L Alkaline Phosphatase 78 50-136 U/L Total Protein 6.0 6.0-8.3 g/dL Albumin 3.0 L 3.5-5.0 g/dL Thyroid Stimulating Hormone (TSH) 5.23 H 0.36-3.74 uIU/mL Influenza Type A Antigen Negative For Type A NEGATIVE Influenza Type B Antigen Negative For Type B NEGATIVE SARS-CoV-2, RNA, NAAT NEGATIVE SARS CoV-2 NEGATIVE Urine Color STRAW YELLOW Urine Appearance CLEAR CLEAR Urine pH 5.5 5.0-8.0 Urine Specific [place] 1.006 1.001-1.031 Urine Protein NEGATIVE NEGATIVE mg/dL Urine Glucose (UA) NEGATIVE NEGATIVE mg/dL Urine Ketones NEGATIVE NEGATIVE mg/dL Urine Occult Blood NEGATIVE NEGATIVE Urine Nitrate NEGATIVE NEGATIVE Urine Bilirubin NEGATIVE NEGATIVE mg/dL Urine Urobilinogen 0.2 0.2-1.0 mg/dL Urine Leukocyte Esterase NEGATIVE NEGATIVE Felicia/uL Test 06/22/24 15:18 Range/Units Immature Granulocyte % (Auto) 0.1 0-1 % Neutrophils (%) (Auto) 53.3 40.0-77.0 % Lymphocytes (%) (Auto) 39.1 21.0-51.0 % Monocytes (%) (Auto) 5.5 3.0-13.0 % Eosinophils (%) (Auto) 1.7 0.0-8.0 % Basophils (%) (Auto) 0.3 0.0-5.0 % Neutrophils # (Auto) 3.7 1.8-7.7 K/uL Lymphocytes # (Auto) 2.7 1.0-4.8 K/uL Monocytes # (Auto) 0.4 0.1-1.0 K/uL Eosinophils # (Auto) 0.12 0.00-0.70 K/uL Basophils # (Auto) 0.02 0.00-0.20 K/uL Absolute Immature Granulocyte (auto 0.01 0-1 K/uL Direct Bilirubin 0.1 0.0-0.3 mg/dL Lipase 38 16-77 U/L Current Medications Medications (Trade) Dose Ordered Sig/Domenica Route PRN Reason Start Time Stop Time Status Last Admin Dose Admin Acetaminophen (TYLenol 325MG TAB) 650 mg Q6H PRN PO FEVER/MILD PAIN LEVEL 1-3 06/22/24 19:30 07/22/24 19:29 Acetaminophen (TYLenol 650MG SUPPOSITORY) 650 mg Q6H PRN RC FEVER / MILD PAIN 1-3 IF NPO 06/22/24 19:30 07/22/24 19:29 Dextrose (D50w) 50 ml AD PRN IV HYPOGLYCEMIA PROTOCOL 06/22/24 19:30 07/22/24 19:29 Docusate Sodium (COLace 100MG CAP) 100 mg BID PRN PO c 06/22/24 19:30 07/22/24 19:29 Enoxaparin Sodium (Lovenox) 40 mg DAILY SQ 06/23/24 09:00 07/23/24 08:59 06/23/24 08:24 40 MG Glucagon (Glucagon 1mg Kit) 1 mg AD PRN IM HYPOGLYCEMIA PROTOCOL 06/22/24 19:30 07/22/24 19:29 Hydralazine HCl (APRESOLine 20MG INJ) 10 mg Q2H PRN IV SBP GREATER THAN 160 06/22/24 19:30 07/22/24 19:29 Hydromorphone HCl (DiLAUDid 1MG INJ) 0.5 mg Q4H PRN IVP SEVERE PAIN (7-10) 06/22/24 19:30 06/27/24 19:29 Insulin Human Regular (humuLIN R 100 UNIT/ML 3ML) INSULIN SLIDING SCAL... ACHS SQ 06/22/24 21:00 07/22/24 20:59 Lactated Ringer's 1,000 ml @ 100 mls/hr Q10H IV 06/22/24 19:30 07/22/24 19:29 06/23/24 07:35 100 MLS/HR Magnesium Sulfate 50 ml @ 0 mls/hr PROTOCOL PRN IV MAGNESIUM PROTOCOL 06/22/24 19:30 07/22/24 19:29 Metronidazole/ Sodium Chloride 100 ml @ 100 mls/hr Q8H6 IVPB 06/22/24 22:30 07/02/24 22:29 06/23/24 07:35 100 MLS/HR Ondansetron HCl (zoFRAN 4MG INJ) 4 mg Q6H PRN IVP NAUSEA/VOMITING 06/22/24 19:30 07/22/24 19:29 Pantoprazole Sodium (PROTonix 40MG INJ) 40 mg BID IVP 06/22/24 21:00 07/22/24 20:59 06/23/24 08:24 40 MG Potassium Chloride 100 ml @ 100 mls/hr AD PRN IV POTASSIUM PROTOCOL 06/22/24 19:30 07/22/24 19:29 Potassium Chloride (K-Dur/Klor-Con 20meq) 20 meq AD PRN PO POTASSIUM PROTOCOL 06/22/24 19:30 07/22/24 19:29 Potassium Chloride (KCl 10% Elixir 20meq/15ml) 20 meq AD PRN PO POTASSIUM PROTOCOL 06/22/24 19:30 07/22/24 19:29 Simethicone (Mylicon) 120 mg PCHS PRN PO GI GAS 06/22/24 21:30 07/22/24 21:29 06/22/24 22:00 120 MG Temazepam (restORIL 15 MG CAP) 15 mg HS PRN PO INSOMNIA/SLEEP 06/22/24 19:30 07/22/24 19:29 DIAGNOSTICS / RADIOLOGY: [ ] ASSESSMENT: Pneumobilia from prior cholecystectomy, per CT abdomen 06/22/2024 Enteritis, per CT abdomen 06/22/2024 Intractable abdominal pain, POA Intractable diarrhea, POA Dehydration, POA Chronic problem list: Diverticulitis, diverticulosis, pancreatitis, colitis, IBS, chronic idiopathic constipation, colectomy, partial colon resection, osteoporosis, urinary incontinence, hemorrhoids PLAN: Continue medical floor with telemetry monitoring. Continue IV gentle hydration, LR at 100 ml/ hour. Pending stool for C diff. (follow stool for: cultures stool panel GI by PCR sent by ED) Continue Flagyl 500 mg IV q.8 hours, empiric treatment. GI consulted, recommendations pending DVT and GI prophylaxis: Lovenox and Protonix Glucometer checks a.c. and HS with insulin regular sliding scale. Disposition: Pending improvement in clinical status CAROLINA MEYER MD Jun 23, 2024 15:31
--- NOTE | 2024-06-23 15:31 | CONS ---
GASTROENTEROLOGY CONSULTATION NOTE Date of Consultation: Jun 23, 2024 Time of Consultation: 15:31 History of Present Illness: This is a 69-year-old female with past medical history of diverticulitis, diverticulosis, pancreatitis, colitis, IBS, constipation with history of colectomy who presented due to diarrhea and upper abdominal pain. She follows up with her colorectal team outpatient. Labs are within normal limits. Lipase negative. CT abdomen and pelvis revealing enteritis. Pneumobilia from cholecystectomy. Review of Systems: CONSTITUTIONAL: No malaise or change in sensation of wellbeing. ENMT: No rhinorrhea, otorrhea, sinus pain, ear ache. CARDIOVASCULAR: No angina, palpitations, orthopnea or paroxysmal dyspnea. RESPIRATORY: No SOB. GASTROINTESTINAL: No abdominal pain, nausea, vomiting, diarrhea, hematemesis, melena or change in the patient's habitual bowel movements consistency/number. GENITOURINARY: No dysuria, hematuria or change in bladder continence. MUSCULOSKELETAL: No new muscle pain or decrease in muscular strength. No new joint swelling, redness or tenderness. SKIN: No new rash. Past Medical History: PAST MEDICAL HISTORY: As mentioned above PAST SURGICAL HISTORY: Appendectomy, hysterectomy, tonsillectomy, cholecystectomy, colon resection PAST SOCIAL HISTORY: Patient denied: Alcohol, tobacco, illicit drug use Coded Allergies: iodine (Unverified Allergy, Severe, 10/11/23) Penicillins (Unverified Allergy, Unknown, 10/11/23) azithromycin (Unverified Allergy, Unknown, 10/11/23) latex (Unverified Allergy, Unknown, 10/11/23) mirabegron (Unverified Allergy, Unknown, 10/11/23) morphine (Unverified Allergy, Unknown, 10/11/23) nitrofurantoin (Unverified Allergy, Unknown, 10/11/23) sulfamethoxazole (Unverified Allergy, Unknown, 10/11/23) trimethoprim (Unverified Allergy, Unknown, 10/11/23) Physical Exam: GEN: Awake, alert, oriented in person, time and place, and in no acute distress. HEENT: No sinus tenderness. Tympanic membranes were not examined. No rhinorrhea. Oral pharyngeal mucosa is pink, moist and within normal limits. Neck is supple with no cervical lymphadenopathy, thyromegaly or JVD. CHEST: Inspection, palpation and percussion of the chest were unremarkable. Lung auscultation revealed normal breath sounds bilaterally. CARDIAC: PMI is within normal limits. Heart sounds are regular. Normal S1, S2. No gallop or murmur. ABD: Soft, non-tender and not distended. No peritoneal signs on palpation. No organomegaly. Normal bowel sounds. EXT: No cyanosis or clubbing. No edema. SKIN: Intact. No rashes. JOINTS: No evidence of synovitis or acute arthritis. NEURO: Alert and oriented to name, place and person. Cranial nerve examination is unremarkable. No focal motor deficits. Normal speech. Gait is normal. Strength is normal. Vital Sign (Last 24 Hours) 06/23/24 06/23/24 00:00 11:54 Temp 98.8 Pulse 67 Resp 18 B/P (MAP) 118/62 Pulse Ox 96 O2 Delivery Room Air O2 Flow Rate 0 FiO2 21 Laboratory: [ ] Laboratory: Test 06/23/24 11:07 06/23/24 04:15 06/22/24 23:27 06/22/24 17:05 Range/Units Whole Blood Glucose 85 70-110 MG/DL White Blood Count 5.1 # 4.8-10.8 K/uL Red Blood Count 4.07 4.00-5.50 MIL/uL Hemoglobin 12.0 12.0-16.0 g/dL Hematocrit 36.8 36-48 % Mean Corpuscular Volume 90.4 79-99 fL Mean Corpuscular Hemoglobin 29.5 27.0-33.0 pg Mean Corpuscular Hemoglobin Concent 32.6 32.0-36.0 g/dL Red Cell Distribution Width 12.8 11.0-15.5 % Platelet Count 143 130-400 K/uL Mean Platelet Volume 10.0 7.5-10.5 fL Nucleated Red Blood Cells 0.0 0.0-0.19 % Sodium Level 144 136-145 mmol/L Potassium Level 3.9 3.5-5.1 mmol/L Chloride Level 108 101-111 mmol/L Carbon Dioxide Level 28 21-32 mmol/L Blood Urea Nitrogen 11 7-18 mg/dL Creatinine 0.5 0.5-1.0 mg/dL Glomerular Filtration Rate Calc 101 >90 mL/min Random Glucose 77 70-105 mg/dL Hemoglobin A1c 6.1 H 4.0-6.0 % Estimated Average Glucose (eAG) 128 H 70-126 mg/dL Total Calcium 9.1 8.5-10.1 mg/dL Phosphorus Level 4.3 2.5-4.9 mg/dL Magnesium Level 1.90 1.80-2.40 mg/dL Total Bilirubin 0.8 # 0.2-1.0 mg/dL Aspartate Amino Transf (AST/SGOT) 29 10-37 U/L Alanine Aminotransferase (ALT/SGPT) 48 12-78 U/L Alkaline Phosphatase 78 50-136 U/L Total Protein 6.0 6.0-8.3 g/dL Albumin 3.0 L 3.5-5.0 g/dL Thyroid Stimulating Hormone (TSH) 5.23 H 0.36-3.74 uIU/mL Influenza Type A Antigen Negative For Type A NEGATIVE Influenza Type B Antigen Negative For Type B NEGATIVE SARS-CoV-2, RNA, NAAT NEGATIVE SARS CoV-2 NEGATIVE Urine Color STRAW YELLOW Urine Appearance CLEAR CLEAR Urine pH 5.5 5.0-8.0 Urine Specific [place] 1.006 1.001-1.031 Urine Protein NEGATIVE NEGATIVE mg/dL Urine Glucose (UA) NEGATIVE NEGATIVE mg/dL Urine Ketones NEGATIVE NEGATIVE mg/dL Urine Occult Blood NEGATIVE NEGATIVE Urine Nitrate NEGATIVE NEGATIVE Urine Bilirubin NEGATIVE NEGATIVE mg/dL Urine Urobilinogen 0.2 0.2-1.0 mg/dL Urine Leukocyte Esterase NEGATIVE NEGATIVE Felicia/uL Test 06/22/24 15:18 Range/Units Immature Granulocyte % (Auto) 0.1 0-1 % Neutrophils (%) (Auto) 53.3 40.0-77.0 % Lymphocytes (%) (Auto) 39.1 21.0-51.0 % Monocytes (%) (Auto) 5.5 3.0-13.0 % Eosinophils (%) (Auto) 1.7 0.0-8.0 % Basophils (%) (Auto) 0.3 0.0-5.0 % Neutrophils # (Auto) 3.7 1.8-7.7 K/uL Lymphocytes # (Auto) 2.7 1.0-4.8 K/uL Monocytes # (Auto) 0.4 0.1-1.0 K/uL Eosinophils # (Auto) 0.12 0.00-0.70 K/uL Basophils # (Auto) 0.02 0.00-0.20 K/uL Absolute Immature Granulocyte (auto 0.01 0-1 K/uL Direct Bilirubin 0.1 0.0-0.3 mg/dL Lipase 38 16-77 U/L Current Medications Medications (Trade) Dose Ordered Sig/Domenica Route PRN Reason Start Time Stop Time Status Last Admin Dose Admin Acetaminophen (TYLenol 325MG TAB) 650 mg Q6H PRN PO FEVER/MILD PAIN LEVEL 1-3 06/22/24 19:30 07/22/24 19:29 Acetaminophen (TYLenol 650MG SUPPOSITORY) 650 mg Q6H PRN RC FEVER / MILD PAIN 1-3 IF NPO 06/22/24 19:30 07/22/24 19:29 Dextrose (D50w) 50 ml AD PRN IV HYPOGLYCEMIA PROTOCOL 06/22/24 19:30 07/22/24 19:29 Docusate Sodium (COLace 100MG CAP) 100 mg BID PRN PO c 06/22/24 19:30 07/22/24 19:29 Enoxaparin Sodium (Lovenox) 40 mg DAILY SQ 06/23/24 09:00 07/23/24 08:59 06/23/24 08:24 40 MG Glucagon (Glucagon 1mg Kit) 1 mg AD PRN IM HYPOGLYCEMIA PROTOCOL 06/22/24 19:30 07/22/24 19:29 Hydralazine HCl (APRESOLine 20MG INJ) 10 mg Q2H PRN IV SBP GREATER THAN 160 06/22/24 19:30 07/22/24 19:29 Hydromorphone HCl (DiLAUDid 1MG INJ) 0.5 mg Q4H PRN IVP SEVERE PAIN (7-10) 06/22/24 19:30 06/27/24 19:29 Insulin Human Regular (humuLIN R 100 UNIT/ML 3ML) INSULIN SLIDING SCAL... ACHS SQ 06/22/24 21:00 07/22/24 20:59 Lactated Ringer's 1,000 ml @ 100 mls/hr Q10H IV 06/22/24 19:30 07/22/24 19:29 06/23/24 07:35 100 MLS/HR Magnesium Sulfate 50 ml @ 0 mls/hr PROTOCOL PRN IV MAGNESIUM PROTOCOL 06/22/24 19:30 07/22/24 19:29 Metronidazole/ Sodium Chloride 100 ml @ 100 mls/hr Q8H6 IVPB 06/22/24 22:30 07/02/24 22:29 06/23/24 07:35 100 MLS/HR Ondansetron HCl (zoFRAN 4MG INJ) 4 mg Q6H PRN IVP NAUSEA/VOMITING 06/22/24 19:30 07/22/24 19:29 Pantoprazole Sodium (PROTonix 40MG INJ) 40 mg BID IVP 06/22/24 21:00 07/22/24 20:59 06/23/24 08:24 40 MG Potassium Chloride 100 ml @ 100 mls/hr AD PRN IV POTASSIUM PROTOCOL 06/22/24 19:30 07/22/24 19:29 Potassium Chloride (K-Dur/Klor-Con 20meq) 20 meq AD PRN PO POTASSIUM PROTOCOL 06/22/24 19:30 07/22/24 19:29 Potassium Chloride (KCl 10% Elixir 20meq/15ml) 20 meq AD PRN PO POTASSIUM PROTOCOL 06/22/24 19:30 07/22/24 19:29 Simethicone (Mylicon) 120 mg PCHS PRN PO GI GAS 06/22/24 21:30 07/22/24 21:29 06/22/24 22:00 120 MG Temazepam (restORIL 15 MG CAP) 15 mg HS PRN PO INSOMNIA/SLEEP 06/22/24 19:30 07/22/24 19:29 Diagnostics / Radiology: [COPY/PASTE HERE IF NO REPORTS PLEASE DELETE SECTION] Assessment: Diarrhea hx colectomy Plan: Await stool studies NIKKI LUGO DATER ASSEMBLER Jun 23, 2024 15:31
--- NOTE | 2024-06-23 15:53 | NUR ---
GI CONSULT PROVIDED BEREKET JORDAN WITH GI ON PATIENT'S CONDITION AND PENDING ORDERS. ADVISED PATIENT HAS NOT HAD DIARRHEA SINCE ADMISSION TO FLOOR AND HAS NOT COMPLAINED OF ABDOMINAL PAIN SINCE ADMISSION WELL. PER NIKKI, WILL WAIT ON STOOL STUDIES FOR FURTHER RECOMMENDATIONS. NO NEW ORDERS GIVEN. WILL CONTINUE TO MONITOR.
--- NOTE | 2024-06-23 16:53 | NUR ---
PM INSULIN PATIENT REFUSED PM INSULIN STATING HAS NEVER HAD IT ADMINISTERED AND WOULD PREFER NOT TO HAVE IT AT THIS TIME D/T HER BEING ALLERGIC TO SEVERAL MEDICATIONS. EDUCATED PATIENT ON PROTOCOL FOR SLIDING SCALE AND BS BEING MONITORED TO AVOID ANY COMPLICATIONS. PATIENT VOICED UNDERSTANDING, HOWEVER WOULD LIKE TO CONTINUE TO MONITOR WITHOUT INSULIN AT THIS TIME. PROVIDER NOTIFIED. WILL CONTINUE TO MONITOR.
[2024-06-24] VITALS: BP 124/60; PULSE 60; RESP 17; TEMP 97.9
[2024-06-24 04:02] VITALS: BP 137/63; PULSE 52; RESP 17; TEMP 97.7
[2024-06-24 04:55] LABS: BASOPHILS # (AUTO) 0.01 K/uL (0.00-0.20); BASOPHILS % (AUTO) 0.2 % (0.0-5.0); EOSINOPHILS # (AUTO) 0.17 K/uL (0.00-0.70); EOSINOPHILS % (AUTO) 3.5 % (0.0-8.0); HEMATOCRIT 34.7 % (36-48); IMMATURE GRANULOCYTE ABSOLUTE 0.01 K/uL (0-1); LYMPHOCYTES # (AUTO) 1.6 K/uL (1.0-4.8); LYMPHOCYTES % (AUTO) 32.4 % (21.0-51.0); MEAN CORPUSCULAR HEMOGLOBIN 29.6 pg (27.0-33.0); MEAN CORPUSCULAR HGB CONC 33.1 g/dL (32.0-36.0); MEAN CORPUSCULAR VOLUME 89.4 fL (79-99); MONOCYTES # (AUTO) 0.3 K/uL (0.1-1.0); MONOCYTES % (AUTO) 7.1 % (3.0-13.0); NEUTROPHILS # (AUTO) 2.7 K/uL (1.8-7.7); NEUTROPHILS % (AUTO) 56.6 % (40.0-77.0); PLATELET COUNT (AUTO) 150 K/uL (130-400); RED BLOOD CELL COUNT(AUTO) 3.88 MIL/uL (4.00-5.50); RED CELL DISTRIBUTION WIDTH 12.8 % (11.0-15.5); WHITE BLOOD COUNT (AUTO) 4.8 K/uL (4.8-10.8)
[2024-06-24 05:04] LABS: CREATININE 0.5 mg/dL (0.5-1.0); MAGNESIUM 1.7 mg/dL (1.80-2.40); PHOSPHORUS 3.6 mg/dL (2.5-4.9); POTASSIUM 3.7 mmol/L (3.5-5.1)
[2024-06-24 07:30] VITALS: O2SAT 97
[2024-06-24 07:40] VITALS: BP 130/67; PULSE 56; RESP 14; TEMP 97.6
[2024-06-24] MEDS: PoTASSium chloRIDE 20MEQ ER 20 MEQ ERTAB PO PRN (07:51)
[2024-06-24 11:26] VITALS: BP 119/64; PULSE 60; RESP 14; TEMP 98.1
--- NOTE | 2024-06-24 11:29 | NUR ---
DISCHARGE DISCHARGE ORDERS FOR PATIENT TO BE DISCHARGED HOME OBTAINED. DISCHARGE INSTRUCTIONS AND DOCUMENTATION GIVEN TO PATIENT AT BEDSIDE. PATIENT VOICED UNDERSTANDING. IV DISCONTINUED, CATHETER INTACT, NO S/S OF INFECTION NOTED TO SITE. PATIENT TOLERATED WELL. BANDS REMOVED. PATIENT PENDING TRANSPORTATION.
--- NOTE | 2024-06-24 17:59 | DS ---
Discharge Summary Hospital Course Summary: 69-year-old female presented with recurrent diarrhea with a proximally 12 episodes of watery diarrhea per day. She was admitted, started on IV fluids, started on empiric antibiotics and stool cultures were ordered. Stool cultures were negative and by hospital day three she was having one semi formed bowel movement per day with diarrhea resolved. She was tolerating a diet, she was afebrile and hemodynamically stable. She was cleared for discharge and we will be discharged home. 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 Procedure(s): CT ABDOMEN/PELVIS W/O CONTRAST CLINICAL HISTORY: Periumbilical pain tenderness with liquid stools for four days COMPARISON: None TECHNIQUE: Sequential axial images of abdomen and pelvis without contrast and with sagittal and coronal reconstructions. CT was performed with one or more of the following dose reduction techniques: automated exposure control, adjustment of the mA and/or kV according to patient size, or use of iterative reconstruction technique FINDINGS: Lung bases are clear. There is mild pneumobilia secondary to prior cholecystectomy. The spleen is unremarkable. The pancreas and adrenal glands are unremarkable. The kidneys are within normal limits. Note is made of stable bilateral parapelvic cysts. The bladder is unremarkable. There are fluid-filled loops of small bowel and partially fluid filled loops of large bowel with no identified bowel obstruction. The uterus is surgically absent. Note is made of clips in the anterior pelvic wall from prior surgery. There is no free air or free fluid. There is no bulky abdominal or retroperitoneal lymphadenopathy. Note is made of mild diffuse degenerative changes of spine. IMPRESSION: Findings most consistent with enteritis. Pneumobilia from prior cholecystectomy. Assessment/Plan: Pneumobilia from prior cholecystectomy, per CT abdomen 06/22/2024 Enteritis, per CT abdomen 06/22/2024 Intractable abdominal pain, POA Intractable diarrhea, POA Dehydration, POA Chronic problem list: Diverticulitis, diverticulosis, pancreatitis, colitis, IBS, chronic idiopathic constipation, colectomy, partial colon resection, osteoporosis, urinary incontinence, hemorrhoids Discharge Instructions: Follow up with PCP in 3-7 days Follow up with GI at next scheduled appointment on the Home Medications: Reported Medications Cholestyramine (with Sugar) (Cholestyramine Packet) 4 Gram Powd.pack, 1 PACKET PO BID for 30 Days, #30 PACKET 0 Refills 06/23/24 Discontinued Reported Medications [Mvi] No Conflict Check, 1 TAB PO DAILY 10/11/23 [caltrate] No Conflict Check, 1 TAB PO DAILY 10/11/23 Ondansetron (Ondansetron Odt) 8 Mg Tab.rapdis, 8 MG PO TID PRN for NAUSEA/VOMITING, TAB 10/11/23 Discontinued Scripts Ibuprofen (Ibuprofen 800 mg Tab) 800 Mg Tab, 800 MG PO Q6H PRN for PAIN, #30 TAB Prov:ANDRE MERAZ SPA COORDINATOR 11/13/23 Continued Medications: Cholestyramine (with Sugar) (Cholestyramine Packet) 4 Gram Powd.pack 1 PACKET PO BID for 30 Days, #30 PACKET 0 Refills Time spent arranging discharge: 31-60 minutes CAROLINA MEYER MD Jun 24, 2024 17:59
[2024-06-25 08:11] LABS: C DIFFICILE TOXIN A/B Not Detected (Not Detected); ENTEROAGGREGATIVE ECOLI Not Detected (Not Detected); GIARDIA LAMBLIA Not Detected (Not Detected); PLESIOMONAS SHIGELOIDES Not Detected (Not Detected); SAPOVIRUS Not Detected (Not Detected); SHIGELLA/ENTEROINVASIVE E COLI Not Detected (Not Detected); VIBRIO Not Detected (Not Detected); VIBRIO CHOLERAE Not Detected (Not Detected)
== END 2024-06-24 12:45 | disposition home or self-care (01) | DRG 392 ==
LOC: EDH 14:58 → EDHIP 18:47 → 4CH 23:58
PROVIDERS: ADMIT Hospitalist; ATTEND Hospitalist
DX: K52.9 Noninfective gastroenteritis and colitis, unspecified (principal); K86.1 Other chronic pancreatitis; M81.0 Age-related osteoporosis without current pathological fracture; K59.04 Chronic idiopathic constipation; K57.90 Diverticulosis of intestine, part unspecified, without perforation or abscess without bleeding; I10 Essential (primary) hypertension; E86.0 Dehydration; Z90.49 Acquired absence of other specified parts of digestive tract; Z88.0 Allergy status to penicillin; Z90.710 Acquired absence of both cervix and uterus
CPT/HCPCS: 36415; 74176; 80048; 80053; 80076; 81003; 82948; 83036; 83690; 83735; 84100; 84443; 85025; 85027; 87046; 87507; 87635; 87804; G0378; J1650; J1815; J1885; J2470; J3490; J7030; J7120

== ENCOUNTER 2024-12-23 01:47 | Observation (INO) | payer MEDICARE, OTHER ==
[2024-12-23] VITALS (7 sets, daily range): BP systolic 112–143; BP diastolic 61–85; PULSE 61–82; RESP 7–18; TEMP 97.7–98.6; O2SAT 100
[~2024-12-23] VITALS: Ht 160 cm; Wt 72.6 kg
[~2024-12-23 01:47] MED LIST changes: +CHOL4POW4 PO; -IBUP-2077 PO; -MVI PO; -ONDA-245 PO; -caltrate PO
[2024-12-23 02:18] LABS: ADD UA MICROSCOPIC YES; APPEARANCE,URINE CLEAR (CLEAR); GLUCOSE, URINE (UA) NEGATIVE (NEGATIVE); LEUKOCYTE ESTERASE ,URINE NEGATIVE Leu/uL (NEGATIVE); NITRATE,URINE NEGATIVE (NEGATIVE); OCCULT BLOOD,URINE +- (TRACE) (NEGATIVE)
[2024-12-23 02:19] LABS: SQUAMOUS EPITHELIAL CELL,UR RARE /HPF (0-2)
--- NOTE | 2024-12-23 03:09 | ERN ---
General Chief Complaint: Abdominal Pain Stated Complaint: ABDOMINAL PAIN Time Seen by MD: 03:05 Source: patient History of Present Illness Initial Comments 69-year-old female coming in with nausea vomiting and florid diarrhea. Her past medical history includes a total colectomy as well as an electrical stimulation placement for her bladder. In addition she has a abdominal pain with every bump of the ambulance as she was coming to the hospital. Mild fever. Timing/Duration: 24 hours Severity: severe Allergies: Coded Allergies: iodine (Unverified Allergy, Severe, 10/11/23) Penicillins (Unverified Allergy, Unknown, 10/11/23) azithromycin (Unverified Allergy, Unknown, 10/11/23) latex (Unverified Allergy, Unknown, 10/11/23) mirabegron (Unverified Allergy, Unknown, 10/11/23) morphine (Unverified Allergy, Unknown, 10/11/23) nitrofurantoin (Unverified Allergy, Unknown, 10/11/23) sulfamethoxazole (Unverified Allergy, Unknown, 10/11/23) trimethoprim (Unverified Allergy, Unknown, 10/11/23) Home Meds Reported Medications Cholestyramine (with Sugar) (Cholestyramine Packet) 4 Gram Powd.pack, 1 PACKET PO BID for 30 Days, #30 PACKET 0 Refills 06/23/24 Past Medical History Past Medical History: Diverticulitis Medical History Other: COLITIS Past Surgical History: Appendectomy, Hysterectomy, Tonsillectomy, Cholecyst ectomy Surgical History Other: COLON RESECTION Female( History) History: Not Applicable Constitutional: (-) chills, (-) diaphoresis, (-) fever, (-) malaise, (-) weakness, (-) other documentation EENTM: (-) eye pain, (-) blurred vision, (-) tearing, (-) double vision, (-) ear pain, (-) ear discharge, (-) nose pain, (-) nose congestion, (-) throat pain, (-) Throat swelling, (-) mouth pain, (-) tooth pain, (-) mouth swelling, (-) other documentation Respiratory: (-) cough, (-) orthopnea, (-) short of breath, (-) stridor, (-) wheezing, (-) other documentation Cardiovascular: (-) chest pain, (-) edema, (-) palpitations, (-) syncope, (-) dyspnea on exertion, (-) other documentation Gastrointestinal/Abdominal: (+) nausea, (+) vomiting, (+) diarrhea Musculoskeletal: (-) Neck pain, (-) back pain, (-) Flank Pain, (-) joint pain, (-) joint swelling, (-) muscle pain, (-) muscle stiffness, (-) gout, (-) other documentation Skin: (-) laceration, (-) contusion, (-) abrasion, (-) abscess, (-) rash, (-) change in color, (-) change in hair, (-) change in nails, (-) diaphoresis, (-) dryness, (-) other documentation Physical Exam General Appearance: (+) moderate distress Orientation: (+) alert Head/Face Trauma: No Eye: bilateral eye normal inspection, bilateral eye PERRL, bilateral eye EOMI Ear, Nose, Throat: (+) hearing grossly normal, (+) normal ENT inspection, (+) moist mucous membraine Neck: (+) normal inspection, (+) supple, (+) full range of motion Respiratory: (+) chest non-tender, (+) lungs clear Heart: (+) regular, (+) no gallop Vascular: (+) no edema, (+) normal peripheral pulse Gastrointestinal: (+) soft, (+) tender, (+) rebound Gastrointestinal Comment Patient has hyperactive bowel sounds and she does have peritoneal signs. Results Laboratory and Microbiology Lab and Micro Result Laboratory Tests Test 12/23/24 02:03 12/23/24 03:50 Urine Color YELLOW (YELLOW) Urine Appearance CLEAR (CLEAR) Urine pH 7.0 (5.0-8.0) Urine Specific [place] 1.023 (1.001-1.031) Urine Protein NEGATIVE mg/dL (NEGATIVE) Urine Glucose (UA) NEGATIVE mg/dL (NEGATIVE) Urine Ketones 5 mg/dL (NEGATIVE) H Urine Occult Blood +- (TRACE) (NEGATIVE) H Urine Nitrate NEGATIVE (NEGATIVE) Urine Bilirubin NEGATIVE mg/dL (NEGATIVE) Urine Urobilinogen 0.2 mg/dL (0.2-1.0) Urine Leukocyte Esterase NEGATIVE Felicia/uL Urine RBC 2-5 /HPF (0-1) H Urine WBC 0-1 /HPF (0-1) Urine Squamous Epithelial Cells RARE /HPF (0-2) Urine Bacteria None /HPF (None Seen) White Blood Count 10.8 K/uL (4.8-10.8) Red Blood Count 4.07 MIL/uL (4.00-5.50) Hemoglobin 12.4 g/dL (12.0-16.0) Hematocrit 37.2 % (36-48) Mean Corpuscular Volume 91.4 fL (79-99) Mean Corpuscular Hemoglobin 30.5 pg (27.0-33.0) Mean Corpuscular Hemoglobin Concent 33.3 g/dL (32.0-36.0) Red Cell Distribution Width 12.8 % (11.0-15.5) Platelet Count 171 K/uL (130-400) Mean Platelet Volume 9.4 fL (7.5-10.5) Immature Granulocyte % (Auto) 0.3 % (0-1) Neutrophils (%) (Auto) 81.3 % (40.0-77.0) H Lymphocytes (%) (Auto) 11.0 % (21.0-51.0) L Monocytes (%) (Auto) 6.3 % (3.0-13.0) Eosinophils (%) (Auto) 0.9 % (0.0-8.0) Basophils (%) (Auto) 0.2 % (0.0-5.0) Neutrophils # (Auto) 8.8 K/uL (1.8-7.7) H Lymphocytes # (Auto) 1.2 K/uL (1.0-4.8) Monocytes # (Auto) 0.7 K/uL (0.1-1.0) Eosinophils # (Auto) 0.10 K/uL (0.00-0.70) Basophils # (Auto) 0.02 K/uL (0.00-0.20) Absolute Immature Granulocyte (auto 0.03 K/uL (0-1) Nucleated Red Blood Cells 0.0 % (0.0-0.19) Sodium Level 144 mmol/L (136-145) Potassium Level 3.7 mmol/L (3.5-5.1) Chloride Level 108 mmol/L (101-111) Carbon Dioxide Level 31 mmol/L (21-32) Blood Urea Nitrogen 19 mg/dL (7-18) H Creatinine 0.6 mg/dL (0.5-1.0) Glomerular Filtration Rate Calc 97 mL/min (>90) Random Glucose 137 mg/dL (70-105) H Total Calcium 9.1 mg/dL (8.5-10.1) MDM MDM: Differential diagnosis: Patient could have gastroenteritis however with the peritoneal signs and the past surgeries I am concerned about an intra-abdominal catastrophe. The could be twisted bowel there could be a leak could be torsion. Rationale: Tests considered and ordered secondary to shared decision making include: Previous outside records reviewed: Old ER visits. Risk of complication and/or morbidity or mortality of patient management: None Medications-Per medication reconciliation Need for hospitalization: Patient does meet criteria for hospitalization. Need for emergency major/minor surgery: No There are no social concerns with this patient. Prescription drug management Prescriptions will include symptomatic care Patient's prior external medical records from other ER visits were reviewed by me as indicated. Prior testing and results from previous visits were reviewed. Prior tests were taken into account with medical decision making and resource utilization, independent historian/historians were used to obtain complete medical history. I independently interpreted the test that were performed, results were reviewed by me and considered findings on radiology if ordered. Patient's CT scan was negative. It was done without contrast because of patient's allergy and therefore I could not really quantitate the thickness of her small bowel adkins. It is conceivable that patient has gastroenteritis. She has been treated for this in the past with Flagyl. In either case she can not be discharged because she does not have the ability to keep food down nor has a diarrhea slowed down and she is dehydrated. I have called the hospitalist and they have admitted her. ED Course Orders Procedure Category Date Status Time Vital Signs Per CPOE 12/23/24 Transmitted Routine 02:02 Saline Lock Iv CPOE 12/23/24 Transmitted 02:02 Cbc With Differential LAB 12/23/24 Complete 02:02 Urinalysis Profile LAB 12/23/24 Complete 02:02 Basic Metabolic Panel LAB 12/23/24 Complete 02:02 Lactated Ringers PHA 12/23/24 Complete 1000ml (Lactated 03:10 Ondansetron 4mg Inj PHA 12/23/24 Complete (Zofran 4mg Inj) 03:30 Ct Abdomen/Pelvis W/O CT 12/23/24 Resulted Contrast 03:10 Fentanyl Citrate Pf PHA 12/23/24 Complete 0.05 Mg/Ml (Fentanyl 03:30 Lipase LAB 12/23/24 Logged 05:45 Lactated Ringers PHA 12/23/24 In Process 1000ml (Lactated 06:30 Current Medications Medications (Trade) Dose Ordered Sig/Domenica Route PRN Reason Start Time Stop Time Status Last Admin Dose Admin Fentanyl Citrate (FENTanyl CITRate PF 50 MCG/ 1 ML 2ML VIAL) 100 mcg ONCE ONCE IVP 12/23/24 03:30 12/23/24 03:31 DC 12/23/24 03:54 Lactated Ringer's 1,000 ml @ 125 mls/hr ONCE ONCE IV 12/23/24 06:30 12/23/24 14:29 Lactated Ringer's (Lactated Ringers 1000ml) 1,000 ml BOLUS STAT IV 12/23/24 03:10 12/23/24 03:20 DC 12/23/24 03:53 Ondansetron HCl (zoFRAN 4MG INJ) 4 mg ONCE ONCE IVP 12/23/24 03:30 12/23/24 03:31 DC 12/23/24 03:54 Vital Signs Date Time Temp Pulse Resp B/P (MAP) Pulse Ox O2 Delivery O2 Flow Rate FiO2 12/23/24 04:17 80 19 125/62 99 Room Air* 0 12/23/24 03:00 74 19 135/60 99 Room Air* 0 12/23/24 02:06 78 19 129/74 99 Room Air* 0 12/23/24 01:49 83 16 121/82 99 Room Air 0 DX & DISP Disposition: Inpatient Departure Impression: Primary Impression: Intractable diarrhea Condition: Stable Referrals: SELF,REFERRAL (PCP) RACHAEL ROBLES MD Dec 23, 2024 03:09
[2024-12-23] MEDS: LACTATED RINGERS 1000ML IV STA (03:53)
[2024-12-23 03:58] LABS: IMMATURE GRANULOCYTE ABSOLUTE 0.03 K/uL (0-1); NUCLEATED RED BLOOD CELLS 0.0 % (0.0-0.19); PLATELET COUNT (AUTO) 171 K/uL (130-400); RED BLOOD CELL COUNT(AUTO) 4.07 MIL/uL (4.00-5.50); RED CELL DISTRIBUTION WIDTH 12.8 % (11.0-15.5); WHITE BLOOD COUNT (AUTO) 10.8 K/uL (4.8-10.8)
[2024-12-23 04:06] LABS: CREATININE 0.6 mg/dL (0.5-1.0); GLOMERULAR FILTR. RATE CALC 97.0 mL/min (>90); GLUCOSE,RANDOM 137.0 mg/dL (70-105); SODIUM SERUM 144.0 mmol/L (136-145); UREA NITROGEN, BLOOD 19.0 mg/dL (7-18)
--- NOTE | 2024-12-23 05:13 | HMCIMG ---
EXAM: CT Abdomen and Pelvis without IV contrast CLINICAL HISTORY: Small bowel obstruction. TECHNIQUE: Thin collimated axial CT images of the abdomen and pelvis were obtained with sagittal and coronal reformatted images also submitted. CT scan is done according to ALARA (As Low As Reasonably Achievable). CONTRAST: None. COMPARISON: CT abdomen pelvis dated 06/22/2024. FINDINGS: The included lungs are clear. Status postcholecystectomy. Mild to moderate dilatation of the CBD and intrahepatic ducts with pneumobilia, the CBD measures up to 1.1 cm. No focal abnormality within the liver, pancreas, spleen, or adrenals. Bilateral nephrosis versus parapelvic cysts in the bilateral kidneys. Unremarkable urinary bladder. Presumed post hysterectomy and bilateral oophorectomy status. Presumed post-subtotal colectomy with ileosigmoid colon anastomosis. The appendix is not visualized, likely surgically absent. No obvious bowel wall thickening, dilatation, or obstruction. Hernia repair mesh in the lower ventral wall. Mild calcific atherosclerotic disease in the abdominal aorta and its branches. No pathological lymphadenopathy in the abdomen or pelvis. No ascites or pneumoperitoneum. No acute bony abnormality is evident. Degenerative osseous changes. A neurostimulator device is present in the right side of the back, tip of the loop terminates in the left presacral area. IMPRESSIONS: No acute process or bowel obstruction is evident. Status postcholecystectomy. Mild to moderate dilatation of the CBD and intrahepatic ducts with pneumobilia, the CBD measures up to 1.1 cm. Bilateral nephrosis versus parapelvic cysts in the bilateral kidneys. No gross interval changes. /Lora
[2024-12-23] MEDS ORDERED: PoTASSium chl 10% ELIXIR 20MEQ 20 MEQ/15 ML UDCUP PO PRN (06:30)
[2024-12-23] MEDS: LACTATED RINGERS 1000ML 1,000 ML IV SCH (06:42)
[2024-12-23] MEDS: LACTATED RINGERS 1000ML 1,000 ML IV ONE (06:43)
[2024-12-23] MEDS ORDERED: LOPE2 PO (10:07)
[2024-12-23] MEDS ORDERED: MULT-1367 PO (10:07)
[2024-12-23] MEDS: PoTASSium chloRIDE 20MEQ ER 20 MEQ ERTAB PO PRN (10:39)
[2024-12-23] MEDS: MAGNESIUM 2GM PREMIX 50ML 50 ML IV PRN (10:39)
--- NOTE | 2024-12-23 13:07 | NUR ---
DCP: HOME Pt currently lives with winter Edward [phone], dgt Tasha, and 2 grandchildren. Pt does not have any insecurities with food, jail, and/or utilities. Pt does have a walker and cane. pt does not have home health or provider services. Pt is able to complete ADLs independently. PCP is Dr. Lowry [facility] and uses the [facility] or [facility] for any RX needs. At [place] pt will want to go home and family can assist with transportation. Addendum: 12/23/24 at 1310 by PRINCESS NUÑEZ SS Amended: Links added.
[2024-12-23] MEDS: LOPERAMIDE HCL 2 MG CAP PO PRN (16:24)
--- NOTE | 2024-12-23 17:00 | NUR ---
GAVE REPORT TO JOSE ALBERTO HAYNES.
--- NOTE | 2024-12-23 17:59 | HP ---
[facility] HISTORY AND PHYSICAL Date of Service: Dec 23, 2024 Time of Service: 17:41 HISTORY OF PRESENT ILLNESS: [ ] This is a 69-year-old female with past medical history of diverticulitis, diverticulosis, pancreatitis, colitis, IBS, constipation with history of colectomy presented in ED with chief complaints of liquid diarrhea stools for one week with periumbilical and upper abdominal pain. described as colicky state 10/10 on pain scale on arrival. Severity severe, aggravated factors: PO intake, alleviated factors: none. She stated that the colectomy in [address] Raymond several years ago. Her GI doctor is Dr. Arias at [facility]. The colon resection was done by Dr. Raymond. Associated symptoms: nauseated Deies rectal bleed,fever, chills, Report taking Imodium last dose was about 2 days ago. We will rule out C diff if negative will start Imodium and restart her home medications Cholestyramine Imaging: Mild to moderate dilatation of the CBD and intrahepatic ducts with pneumobilia, the CBD measures up to 1.1 cm. REVIEW OF SYSTEMS 12-point ROS reviewed with patient. All pertinent positives mentioned above. Otherwise negative, non-pertinent, noncontributory. PAST MEDICAL HISTORY: [ ] REFER TO HPI PAST SURGICAL HISTORY: [ ] Appendectomy, hysterectomy, tonsillectomy, cholecystectomy, colon resection PAST SOCIAL HISTORY: [ ]Patient denied: Alcohol, tobacco, illicit drug use FAMILY HISTORY: [ ] noncontributory Coded Allergies: iodine (Unverified Allergy, Severe, 10/11/23) Penicillins (Unverified Allergy, Unknown, 10/11/23) azithromycin (Unverified Allergy, Unknown, 10/11/23) latex (Unverified Allergy, Unknown, 10/11/23) mirabegron (Unverified Allergy, Unknown, 10/11/23) morphine (Unverified Allergy, Unknown, 10/11/23) nitrofurantoin (Unverified Allergy, Unknown, 10/11/23) sulfamethoxazole (Unverified Allergy, Unknown, 10/11/23) trimethoprim (Unverified Allergy, Unknown, 10/11/23) PHYSICAL EXAM GENERAL APPEARANCE: The patient is awake, alert, and oriented, in no acute cardiopulmonary distress. NEUROLOGICAL: Cranial nerves II-XII grossly intact. Motor is 5/5 in bilateral upper and lower extremities proximal to distal. No sensory deficits. HEENT: Face is symmetric. Pupils are equal and reactive. Extraocular movements are intact. NECK: Supple. No JVD. No thyromegaly. No submental, submandibular, pre- /postauricular, occipital or supraclavicular lymphadenopathy. CHEST: Normal chest expansion. No Telemetry. LUNGS: Absence of any rales, rhonchi or any wheezing. CARDIOVASCULAR: Regular. S1 and S2 normal. No appreciable rubs, murmurs or gallops. ABDOMEN: Soft, nontender, and nondistended. There is no rebound, voluntary guarding, or rigidity. : Deferred. No [place]. EXTREMITIES: Non-edematous and not cyanotic. No clubbing. Good capillary refill. SKIN: No skin breakdown. Vital Sign (Last 24 Hours) 12/23/24 12/23/24 09:50 16:00 Temp 98.2 Pulse 65 Resp 7 B/P (MAP) 140/74 Pulse Ox 98 O2 Delivery Room Air O2 Flow Rate 0 FiO2 21 LABS: Laboratory: Test 12/23/24 09:19 12/23/24 08:00 12/23/24 06:48 12/23/24 03:50 Range/Units Magnesium Level 1.70 L 1.80-2.40 mg/dL C. difficile Antigen and Toxins A,B See comments NEG Stool Lactoferrin (LADI) NEGATIVE NEGATIVE White Blood Count 10.8 4.8-10.8 K/uL Red Blood Count 4.07 4.00-5.50 MIL/uL Hemoglobin 12.4 12.0-16.0 g/dL Hematocrit 37.2 36-48 % Mean Corpuscular Volume 91.4 79-99 fL Mean Corpuscular Hemoglobin 30.5 27.0-33.0 pg Mean Corpuscular Hemoglobin Concent 33.3 32.0-36.0 g/dL Red Cell Distribution Width 12.8 11.0-15.5 % Platelet Count 171 130-400 K/uL Mean Platelet Volume 9.4 7.5-10.5 fL Immature Granulocyte % (Auto) 0.3 0-1 % Neutrophils (%) (Auto) 81.3 H 40.0-77.0 % Lymphocytes (%) (Auto) 11.0 L 21.0-51.0 % Monocytes (%) (Auto) 6.3 3.0-13.0 % Eosinophils (%) (Auto) 0.9 0.0-8.0 % Basophils (%) (Auto) 0.2 0.0-5.0 % Neutrophils # (Auto) 8.8 H 1.8-7.7 K/uL Lymphocytes # (Auto) 1.2 1.0-4.8 K/uL Monocytes # (Auto) 0.7 0.1-1.0 K/uL Eosinophils # (Auto) 0.10 0.00-0.70 K/uL Basophils # (Auto) 0.02 0.00-0.20 K/uL Absolute Immature Granulocyte (auto 0.03 0-1 K/uL Nucleated Red Blood Cells 0.0 0.0-0.19 % Sodium Level 144 136-145 mmol/L Potassium Level 3.7 3.5-5.1 mmol/L Chloride Level 108 101-111 mmol/L Carbon Dioxide Level 31 21-32 mmol/L Blood Urea Nitrogen 19 H 7-18 mg/dL Creatinine 0.6 0.5-1.0 mg/dL Glomerular Filtration Rate Calc 97 >90 mL/min Random Glucose 137 H 70-105 mg/dL Total Calcium 9.1 8.5-10.1 mg/dL Lipase 33 16-77 U/L Test 12/23/24 02:03 Range/Units Urine Color YELLOW YELLOW Urine Appearance CLEAR CLEAR Urine pH 7.0 5.0-8.0 Urine Specific [place] 1.023 1.001-1.031 Urine Protein NEGATIVE NEGATIVE mg/dL Urine Glucose (UA) NEGATIVE NEGATIVE mg/dL Urine Ketones 5 H NEGATIVE mg/dL Urine Occult Blood +- (TRACE) H NEGATIVE Urine Nitrate NEGATIVE NEGATIVE Urine Bilirubin NEGATIVE NEGATIVE mg/dL Urine Urobilinogen 0.2 0.2-1.0 mg/dL Urine Leukocyte Esterase NEGATIVE NEGATIVE Felicia/uL Urine RBC 2-5 H 0-1 /HPF Urine WBC 0-1 0-1 /HPF Urine Squamous Epithelial Cells RARE 0-2 /HPF Urine Bacteria None None Seen /HPF Current Medications Medications (Trade) Dose Ordered Sig/Domenica Route PRN Reason Start Time Stop Time Status Last Admin Dose Admin Acetaminophen (TYLenol 325MG TAB) 650 mg Q4H PRN PO TEMPERATURE GREATER THAN 101.5 12/23/24 06:30 01/22/25 06:29 Ketorolac Tromethamine (toRADol) 30 mg Q6H PRN IVP SEVERE PAIN (7-10) 12/23/24 06:30 12/28/24 06:29 Lactated Ringer's 1,000 ml @ 75 mls/hr [id number] IV 12/23/24 06:30 01/22/25 06:29 12/23/24 06:42 75 MLS/HR Lactated Ringer's (Lactated Ringers 1000ml) 1,000 ml BOLUS STAT IV 12/23/24 03:10 12/23/24 03:20 DC 12/23/24 03:53 1,000 ML Levofloxacin/ Dextrose 100 ml @ 100 mls/hr Q24H IV 12/23/24 06:30 01/02/25 06:29 12/23/24 07:39 100 MLS/HR Loperamide HCl (Imodium) 2 mg AD PRN PO AFTER EACH LOOSE STOOL 12/23/24 16:30 01/22/25 16:29 12/23/24 16:24 2 MG Magnesium Sulfate 50 ml @ 0 mls/hr PROTOCOL PRN IV low mag level 12/23/24 06:30 01/22/25 06:29 12/23/24 10:39 25 MLS/HR Metronidazole/ Sodium Chloride 100 ml @ 100 mls/hr Q8H6 IVPB 12/23/24 14:00 01/02/25 13:59 12/23/24 13:45 100 MLS/HR Ondansetron HCl (zoFRAN 4MG INJ) 4 mg Q6H PRN IVP NAUSEA/VOMITING 12/23/24 06:30 01/22/25 06:29 12/23/24 13:45 4 MG Potassium Chloride 100 ml @ 100 mls/hr AD PRN IV POTASSIUM PROTOCOL 12/23/24 06:30 01/22/25 06:29 Potassium Chloride (K-Dur/Klor-Con 20meq) 20 meq AD PRN PO POTASSIUM PROTOCOL 12/23/24 06:30 01/22/25 06:29 12/23/24 10:39 20 MEQ Potassium Chloride (KCl 10% Elixir 20meq/15ml) 20 meq AD PRN PO POTASSIUM PROTOCOL 12/23/24 06:30 01/22/25 06:29 DIAGNOSTICS / RADIOLOGY: [ ] ASSESSMENT: acute gastroenteritis POA Pneumobilia from cholecystectomy on imaging POa PLAN: [ ] Admit: medical surgical condition:Fair Status: Full code IVF:LR at 75 m/hr Diet [facility] GI Antibiotics: Levaquin 500 mg IV daily and flagyl 500 mg IV TID Test:PCR stool, ova parasites and c diff if negative will start Imodium Labs cbc, cmp, mag+ Replace electrolytes as needed as per protocol to keep potassium above 4.0 magnesium 2.0. Home medications pending to be reviewed by RN nurse. PRN: MEDICATIONS Tylenol 650 mg po every 4 hrs for fever zofran 4 mg IV every 6 hrs for n/v Hydralazine 5 mg IV every 4 hrs systolic pressure > 160 Pain management: Supportive measures: DVT ppx, GI ppx all questions answered time spent: > 35 min Supervising MD: Dr. Caban c/d This document was generated in part using voice recognition software, occasional wrong word or sound alike substitutions may have occurred due to the inherent limitations of voice recognition software. Read the chart carefully and recognize using context, where the substitutions have occurred. Although every effort was made to edit the content, apparatus lineman and typing errors may occur ADVANCED CARE PLANNING 1. Which of the following were discussed? Hospice Care - Yes / No Therapeutic options - Yes / No Advance Directives - Yes / No Other discussions - 2. Discussed with who? 3. Voluntary nature of this service was explained to the patient? Yes / No 4. Amount of time spent - 5. Reviewed by Physician? (if this service was performed by NPP) Yes / No ATTESTATION BY PHYSICIAN I have seen and examined the patient. I reviewed the documentation, medical decision making, and treatment plan as noted by the mid-level provider above. I agree with the findings and plan of care. Chiqui Caban MD, ELIZABETH [employer] Dec 23, 2024 17:59
--- NOTE | 2024-12-23 18:20 | NUR ---
ARRIVAL TO UNIT VIA WHEEL CHAIR. AT BEDSIDE. NO PAIN AT THIS TIME. NO WOUNDS NOTED. 20 GAUGE IV TO RT FOREARM CONNECTED TO LR @75ML.HR. V/S: O2:98% BP:143/85 HR:57 RR:17 T: 98.4F. CONNECTED TO [employer] PER PT REQUEST. ANSWERED QUESTIONS.
--- NOTE | 2024-12-23 18:21 | NUR ---
PATIENT WAS ESCORTED VIA WHEELCHAIR WITH HER PERSONAL BELONGINGS WITH BY HER SIDE.
--- NOTE | 2024-12-23 19:09 | CONS ---
GASTROENTEROLOGY CONSULTATION NOTE Date of Consultation: Dec 23, 2024 Time of Consultation: 19:09 History of Present Illness: This is a 69-year-old female with past medical history of diverticulitis, diverticulosis, pancreatitis, colitis, IBS, constipation with history of colectomy who presented due to diarrhea and abdominal pain. CT abdomen and pelvis revealing no acute process or bowel obstruction. Mild to moderate dilation of CBD and intrahepatic ducts with pneumobilia with CBD measuring up to 1.1 cm. She is pending stool studies. WBC normal. She follows up in clinic and has been having loose stools since September for which she was started on cholestyramine. Review of Systems: CONSTITUTIONAL: No malaise or change in sensation of wellbeing. ENMT: No rhinorrhea, otorrhea, sinus pain, ear ache. CARDIOVASCULAR: No angina, palpitations, orthopnea or paroxysmal dyspnea. RESPIRATORY: No SOB. GASTROINTESTINAL: No abdominal pain, nausea, vomiting, diarrhea, hematemesis, melena or change in the patient's habitual bowel movements consistency/number. GENITOURINARY: No dysuria, hematuria or change in bladder continence. MUSCULOSKELETAL: No new muscle pain or decrease in muscular strength. No new joint swelling, redness or tenderness. SKIN: No new rash. Past Medical History: PAST MEDICAL HISTORY: [ ] REFER TO HPI PAST SURGICAL HISTORY: [ ] Appendectomy, hysterectomy, tonsillectomy, cholecystectomy, colon resection PAST SOCIAL HISTORY: [ ]Patient denied: Alcohol, tobacco, illicit drug use FAMILY HISTORY: [ ] noncontributory Coded Allergies: iodine (Unverified Allergy, Severe, 10/11/23) Penicillins (Unverified Allergy, Unknown, 10/11/23) azithromycin (Unverified Allergy, Unknown, 10/11/23) latex (Unverified Allergy, Unknown, 10/11/23) mirabegron (Unverified Allergy, Unknown, 10/11/23) morphine (Unverified Allergy, Unknown, 10/11/23) nitrofurantoin (Unverified Allergy, Unknown, 10/11/23) sulfamethoxazole (Unverified Allergy, Unknown, 10/11/23) trimethoprim (Unverified Allergy, Unknown, 10/11/23) Physical Exam: GEN: Awake, alert, oriented in person, time and place, and in no acute distress. HEENT: No sinus tenderness. Tympanic membranes were not examined. No rhinorrhea. Oral pharyngeal mucosa is pink, moist and within normal limits. Neck is supple with no cervical lymphadenopathy, thyromegaly or JVD. CHEST: Inspection, palpation and percussion of the chest were unremarkable. Lung auscultation revealed normal breath sounds bilaterally. CARDIAC: PMI is within normal limits. Heart sounds are regular. Normal S1, S2. No gallop or murmur. ABD: Soft, non-tender and not distended. No peritoneal signs on palpation. No organomegaly. Normal bowel sounds. EXT: No cyanosis or clubbing. No edema. SKIN: Intact. No rashes. JOINTS: No evidence of synovitis or acute arthritis. NEURO: Alert and oriented to name, place and person. Cranial nerve examination is unremarkable. No focal motor deficits. Normal speech. Gait is normal. Strength is normal. Vital Sign (Last 24 Hours) 12/23/24 12/23/24 09:50 18:34 Temp 98.4 Pulse 78 Resp 18 B/P (MAP) 143/85 Pulse Ox 95 O2 Delivery Room Air O2 Flow Rate 0 FiO2 21 Laboratory: [ ] Laboratory: Test 12/23/24 09:19 12/23/24 08:00 12/23/24 06:48 12/23/24 03:50 Range/Units Magnesium Level 1.70 L 1.80-2.40 mg/dL C. difficile Antigen and Toxins A,B See comments NEG Stool Lactoferrin (LADI) NEGATIVE NEGATIVE White Blood Count 10.8 4.8-10.8 K/uL Red Blood Count 4.07 4.00-5.50 MIL/uL Hemoglobin 12.4 12.0-16.0 g/dL Hematocrit 37.2 36-48 % Mean Corpuscular Volume 91.4 79-99 fL Mean Corpuscular Hemoglobin 30.5 27.0-33.0 pg Mean Corpuscular Hemoglobin Concent 33.3 32.0-36.0 g/dL Red Cell Distribution Width 12.8 11.0-15.5 % Platelet Count 171 130-400 K/uL Mean Platelet Volume 9.4 7.5-10.5 fL Immature Granulocyte % (Auto) 0.3 0-1 % Neutrophils (%) (Auto) 81.3 H 40.0-77.0 % Lymphocytes (%) (Auto) 11.0 L 21.0-51.0 % Monocytes (%) (Auto) 6.3 3.0-13.0 % Eosinophils (%) (Auto) 0.9 0.0-8.0 % Basophils (%) (Auto) 0.2 0.0-5.0 % Neutrophils # (Auto) 8.8 H 1.8-7.7 K/uL Lymphocytes # (Auto) 1.2 1.0-4.8 K/uL Monocytes # (Auto) 0.7 0.1-1.0 K/uL Eosinophils # (Auto) 0.10 0.00-0.70 K/uL Basophils # (Auto) 0.02 0.00-0.20 K/uL Absolute Immature Granulocyte (auto 0.03 0-1 K/uL Nucleated Red Blood Cells 0.0 0.0-0.19 % Sodium Level 144 136-145 mmol/L Potassium Level 3.7 3.5-5.1 mmol/L Chloride Level 108 101-111 mmol/L Carbon Dioxide Level 31 21-32 mmol/L Blood Urea Nitrogen 19 H 7-18 mg/dL Creatinine 0.6 0.5-1.0 mg/dL Glomerular Filtration Rate Calc 97 >90 mL/min Random Glucose 137 H 70-105 mg/dL Total Calcium 9.1 8.5-10.1 mg/dL Lipase 33 16-77 U/L Test 12/23/24 02:03 Range/Units Urine Color YELLOW YELLOW Urine Appearance CLEAR CLEAR Urine pH 7.0 5.0-8.0 Urine Specific [place] 1.023 1.001-1.031 Urine Protein NEGATIVE NEGATIVE mg/dL Urine Glucose (UA) NEGATIVE NEGATIVE mg/dL Urine Ketones 5 H NEGATIVE mg/dL Urine Occult Blood +- (TRACE) H NEGATIVE Urine Nitrate NEGATIVE NEGATIVE Urine Bilirubin NEGATIVE NEGATIVE mg/dL Urine Urobilinogen 0.2 0.2-1.0 mg/dL Urine Leukocyte Esterase NEGATIVE NEGATIVE Felicia/uL Urine RBC 2-5 H 0-1 /HPF Urine WBC 0-1 0-1 /HPF Urine Squamous Epithelial Cells RARE 0-2 /HPF Urine Bacteria None None Seen /HPF Current Medications Medications (Trade) Dose Ordered Sig/Domenica Route PRN Reason Start Time Stop Time Status Last Admin Dose Admin Acetaminophen (TYLenol 325MG TAB) 650 mg Q4H PRN PO TEMPERATURE GREATER THAN 101.5 12/23/24 06:30 8/7/25 06:29 Cholestyramine Resin (Cholestyramine Packet) 1 gm BID PO 12/23/24 21:00 01/22/25 20:59 Ketorolac Tromethamine (toRADol) 30 mg Q6H PRN IVP SEVERE PAIN (7-10) 12/23/24 06:30 12/28/24 06:29 Lactated Ringer's 1,000 ml @ 75 mls/hr [id number] IV 12/23/24 06:30 01/22/25 06:29 12/23/24 06:42 75 MLS/HR Lactated Ringer's (Lactated Ringers 1000ml) 1,000 ml BOLUS STAT IV 12/23/24 03:10 12/23/24 03:20 DC 12/23/24 03:53 1,000 ML Levofloxacin/ Dextrose 100 ml @ 100 mls/hr Q24H IV 12/23/24 06:30 01/02/25 06:29 12/23/24 07:39 100 MLS/HR Loperamide HCl (Imodium) 2 mg AD PRN PO AFTER EACH LOOSE STOOL 12/23/24 16:30 01/22/25 16:29 12/23/24 17:56 2 MG Magnesium Sulfate 50 ml @ 0 mls/hr PROTOCOL PRN IV low mag level 12/23/24 06:30 01/22/25 06:29 12/23/24 10:39 25 MLS/HR Metronidazole/ Sodium Chloride 100 ml @ 100 mls/hr Q8H6 IVPB 12/23/24 14:00 01/02/25 13:59 12/23/24 13:45 100 MLS/HR Multivitamins Therapeutic (Multivitamin Tablet) 1 tab DAILY PO 12/24/24 09:00 01/23/25 08:59 Ondansetron HCl (zoFRAN 4MG INJ) 4 mg Q6H PRN IVP NAUSEA/VOMITING 12/23/24 06:30 01/22/25 06:29 12/23/24 13:45 4 MG Potassium Chloride 100 ml @ 100 mls/hr AD PRN IV POTASSIUM PROTOCOL 12/23/24 06:30 01/22/25 06:29 Potassium Chloride (K-Dur/Klor-Con 20meq) 20 meq AD PRN PO POTASSIUM PROTOCOL 12/23/24 06:30 01/22/25 06:29 12/23/24 17:56 20 MEQ Potassium Chloride (KCl 10% Elixir 20meq/15ml) 20 meq AD PRN PO POTASSIUM PROTOCOL 12/23/24 06:30 01/22/25 06:29 Diagnostics / Radiology: [COPY/PASTE HERE IF NO REPORTS PLEASE DELETE SECTION] Assessment: Diarrhea Abdominal pain Dilated CBD Plan: Await stool GI PCR NIKKI LUGO ENGRAVER [employer] Dec 23, 2024 19:09
[2024-12-23] MEDS: CHOLESTYRAMINE PACKET 4 GM PACKET PO SCH (20:05)
[2024-12-24 04:10] VITALS: BP 105/56; PULSE 69; RESP 18; TEMP 97.8
[2024-12-24 06:19] LABS: IMMATURE GRANULOCYTE ABSOLUTE 0.01 K/uL (0-1); NUCLEATED RED BLOOD CELLS 0.0 % (0.0-0.19); PLATELET COUNT (AUTO) 142 K/uL (130-400); RED BLOOD CELL COUNT(AUTO) 4.01 MIL/uL (4.00-5.50); RED CELL DISTRIBUTION WIDTH 13.0 % (11.0-15.5); WHITE BLOOD COUNT (AUTO) 4.2 K/uL (4.8-10.8)
[2024-12-24 06:34] LABS: ASPARTATE AMINOTRANSFERASE 24.0 U/L (10-37); CREATININE 0.5 mg/dL (0.5-1.0); GLOMERULAR FILTR. RATE CALC 101.0 mL/min (>90); GLUCOSE,RANDOM 104.0 mg/dL (70-105); SODIUM SERUM 147.0 mmol/L (136-145); TOTAL PROTEIN, SERUM 5.7 g/dL (6.0-8.3); UREA NITROGEN, BLOOD 9.0 mg/dL (7-18)
[2024-12-24 08:00] VITALS: BP 109/67; PULSE 61; RESP 19; TEMP 97.9
[2024-12-24] MEDS: MULTIVITAMIN TABLET PO SCH (09:07)
[2024-12-24] MEDS: PSYLLIUM SEED 1 EACH PACKET PO SCH (09:07)
[2024-12-24 12:00] VITALS: BP 114/71; PULSE 78; RESP 19; TEMP 98.1
[2024-12-24] MEDS ORDERED: METR-172 PO (12:42)
--- NOTE | 2024-12-24 12:48 | DS ---
Discharge Summary Hospital Course Summary: This is a 69-year-old female with past medical history of diverticulitis, diverticulosis, pancreatitis, colitis, IBS, constipation with history of colectomy presented in ED with chief complaints of liquid diarrhea stools for one week with periumbilical and upper abdominal pain. described as colicky state 10/10 on pain scale on arrival. Severity severe, aggravated factors: PO intake, alleviated factors: none. She stated that the colectomy in [address] Raymond several years ago. Her GI doctor is Dr. Arias at [facility]. The colon resection was done by Dr. Raymond. Associated symptoms: nauseated Deies rectal bleed,fever, chills, Report taking Imodium last dose was about 2 days ago. We will rule out C diff if negative will start Imodium and restart her home medications Cholestyramine Imaging: Mild to moderate dilatation of the CBD and intrahepatic ducts with pneumobilia, the CBD measures up to 1.1 cm. 12/24/2024 during the course of stay patient was on IV antibiotics Flagyl and Levaquin PCR stool was negative C diff was negative. Patient was followed by GI no procedures on this admission she will follow-up in clinic she will continue on cholestyramine. Apparently patient has been having loose stools since September and was started on cholestyramine. No episodes of diarrhea over 4 hours. Afebrile all questions addressed hemodynamically stable for discharge Assessment/Plan: discharged dx's; acute gastroenteritis POA resolved Pneumobilia from cholecystectomy on imaging POa PLAN: [ ] ADMISSION DATE: 12/23/2024 DISCHARGE DATE: 12/24/2024 DISPOSITION: Home CONDITION: Stable BOOK TRIMMER(S): GI FOLLOW UP APPOINTMENT(S): PCP 2-3 day GI as directed PROCEDURES: None IMAGING (S) report attached to summary : MICROBIOLOGY: report attached to summary; none Negative for C diff ACTIVITY: Ad danyell HOME MEDICATIONS remain the same CHANGES ON HOME MEDICATIONS no changes NEW MEDICATIONS Flagyl 500 t.i.d. for five days TEACHING: Side effects adverse reactions of antibiotics. Emergency instructions: The patient was instructed to present to the nearest Emergency Department or call 911 should their symptoms return or worsen. Discharge Instructions: REASON: sbo ORDERING PHYSICIAN: RACHAEL ROBLES MD PROCEDURE: ABD PEL WO - CT ABDOMEN/PELVIS W/O CONTRAST EXAM: CT Abdomen and Pelvis without IV contrast CLINICAL HISTORY: Small bowel obstruction. TECHNIQUE: Thin collimated axial CT images of the abdomen and pelvis were obtained with sagittal and coronal reformatted images also submitted. CT scan is done according to ALARA (As Low As Reasonably Achievable). CONTRAST: None. COMPARISON: CT abdomen pelvis dated 06/22/2024. FINDINGS: The included lungs are clear. Status postcholecystectomy. Mild to moderate dilatation of the CBD and intrahepatic ducts with pneumobilia, the CBD measures up to 1.1 cm. No focal abnormality within the liver, pancreas, spleen, or adrenals. Bilateral nephrosis versus parapelvic cysts in the bilateral kidneys. Unremarkable urinary bladder. Presumed post hysterectomy and bilateral oophorectomy status. Presumed post-subtotal colectomy with ileosigmoid colon anastomosis. The appendix is not visualized, likely surgically absent. No obvious bowel wall thickening, dilatation, or obstruction. Hernia repair mesh in the lower ventral wall. Mild calcific atherosclerotic disease in the abdominal aorta and its branches. No pathological lymphadenopathy in the abdomen or pelvis. No ascites or pneumoperitoneum. No acute bony abnormality is evident. Degenerative osseous changes. A neurostimulator device is present in the right side of the back, tip of the loop terminates in the left presacral area. IMPRESSIONS: No acute process or bowel obstruction is evident. Status postcholecystectomy. Mild to moderate dilatation of the CBD and intrahepatic ducts with pneumobilia, the CBD measures up to 1.1 cm. Bilateral nephrosis versus parapelvic cysts in the bilateral kidneys. No gross interval changes. /[facility] Medications: Reported Medications Multivitamin (Multivitamin) 1 Each Tablet, 1 TAB PO DAILY for 30 Days, #30 TAB 0 Refills 12/23/24 Loperamide HCl (Imodium) 2 Mg Cap, 2 CAP PO Q6H for loose stool for 5 Days, #40 CAP 0 Refills 12/23/24 Cholestyramine (with Sugar) (Cholestyramine Packet) 4 Gram Powd.pack, 1 PACKET PO BID for 30 Days, #30 PACKET 0 Refills 06/23/24 New Medications: Metronidazole (Metronidazole) 500 Mg Tablet 1 TAB PO TID for 5 Days, #15 TAB 0 Refills Continued Medications: Cholestyramine (with Sugar) (Cholestyramine Packet) 4 Gram Powd.pack 1 PACKET PO BID for 30 Days, #30 PACKET 0 Refills Loperamide HCl (Imodium) 2 Mg Cap 2 CAP PO Q6H for loose stool for 5 Days, #40 CAP 0 Refills Multivitamin (Multivitamin) 1 Each Tablet 1 TAB PO DAILY for 30 Days, #30 TAB 0 Refills Time spent arranging discharge: 31-60 minutes ATTESTATION BY PHYSICIAN I have seen and examined the patient. I reviewed the documentation, medical decision making, and treatment plan as noted by the mid-level provider above. I agree with the findings and plan of care. Chiqui Caban MD, ELIZABETH NP Dec 24, 2024 12:48
--- NOTE | 2024-12-24 22:23 | PN ---
GASTROENTEROLOGY PROGRESS NOTE Date of Visit: Dec 24, 2024 Time of Visit: 22:22 Events / Notes: [ ] Review of Systems: CONSTITUTIONAL: No malaise or change in sensation of wellbeing. ENMT: No rhinorrhea, otorrhea, sinus pain, ear ache. CARDIOVASCULAR: No angina, palpitations, orthopnea or paroxysmal dyspnea. RESPIRATORY: No SOB. GASTROINTESTINAL: No abdominal pain, nausea, vomiting, diarrhea, hematemesis, melena or change in the patient's habitual bowel movements consistency/number. GENITOURINARY: No dysuria, hematuria or change in bladder continence. MUSCULOSKELETAL: No new muscle pain or decrease in muscular strength. No new joint swelling, redness or tenderness. SKIN: No new rash. Physical Exam: GEN: Awake, alert, oriented in person, time and place, and in no acute distress. HEENT: No sinus tenderness. Tympanic membranes were not examined. No rhinorrhea. Oral pharyngeal mucosa is pink, moist and within normal limits. Neck is supple with no cervical lymphadenopathy, thyromegaly or JVD. CHEST: Inspection, palpation and percussion of the chest were unremarkable. Lung auscultation revealed normal breath sounds bilaterally. CARDIAC: PMI is within normal limits. Heart sounds are regular. Normal S1, S2. No gallop or murmur. ABD: Soft, non-tender and not distended. No peritoneal signs on palpation. No organomegaly. Normal bowel sounds. EXT: No cyanosis or clubbing. No edema. SKIN: Intact. No rashes. JOINTS: No evidence of synovitis or acute arthritis. NEURO: Alert and oriented to name, place and person. Cranial nerve examination is unremarkable. No focal motor deficits. Normal speech. Gait is normal. Strength is normal. Laboratory: [ ] Laboratory: Test 12/24/24 06:03 12/23/24 08:00 12/23/24 06:48 12/23/24 03:50 Range/Units White Blood Count 4.2 L 4.8-10.8 K/uL Red Blood Count 4.01 4.00-5.50 MIL/uL Hemoglobin 11.9 L 12.0-16.0 g/dL Hematocrit 36.5 36-48 % Mean Corpuscular Volume 91.0 79-99 fL Mean Corpuscular Hemoglobin 29.7 27.0-33.0 pg Mean Corpuscular Hemoglobin Concent 32.6 32.0-36.0 g/dL Red Cell Distribution Width 13.0 11.0-15.5 % Platelet Count 142 130-400 K/uL Mean Platelet Volume 9.4 7.5-10.5 fL Immature Granulocyte % (Auto) 0.2 0-1 % Neutrophils (%) (Auto) 46.5 40.0-77.0 % Lymphocytes (%) (Auto) 42.0 21.0-51.0 % Monocytes (%) (Auto) 7.7 3.0-13.0 % Eosinophils (%) (Auto) 3.4 0.0-8.0 % Basophils (%) (Auto) 0.2 0.0-5.0 % Neutrophils # (Auto) 1.9 1.8-7.7 K/uL Lymphocytes # (Auto) 1.8 1.0-4.8 K/uL Monocytes # (Auto) 0.3 0.1-1.0 K/uL Eosinophils # (Auto) 0.14 0.00-0.70 K/uL Basophils # (Auto) 0.01 0.00-0.20 K/uL Absolute Immature Granulocyte (auto 0.01 0-1 K/uL Nucleated Red Blood Cells 0.0 0.0-0.19 % Sodium Level 147 H 136-145 mmol/L Potassium Level 4.1 3.5-5.1 mmol/L Chloride Level 111 101-111 mmol/L Carbon Dioxide Level 28 21-32 mmol/L Blood Urea Nitrogen 9 7-18 mg/dL Creatinine 0.5 0.5-1.0 mg/dL Glomerular Filtration Rate Calc 101 >90 mL/min Random Glucose 104 70-105 mg/dL Total Calcium 8.8 8.5-10.1 mg/dL Magnesium Level 1.80 1.80-2.40 mg/dL Total Bilirubin 0.7 0.2-1.0 mg/dL Aspartate Amino Transf (AST/SGOT) 24 10-37 U/L Alanine Aminotransferase (ALT/SGPT) 45 12-78 U/L Alkaline Phosphatase 64 50-136 U/L Total Protein 5.7 L 6.0-8.3 g/dL Albumin 2.8 L 3.5-5.0 g/dL C. difficile Antigen and Toxins A,B See comments NEG Stool Lactoferrin (LADI) NEGATIVE NEGATIVE Lipase 33 16-77 U/L Test 12/23/24 02:03 Range/Units Urine Color YELLOW YELLOW Urine Appearance CLEAR CLEAR Urine pH 7.0 5.0-8.0 Urine Specific Wayne 1.023 1.001-1.031 Urine Protein NEGATIVE NEGATIVE mg/dL Urine Glucose (UA) NEGATIVE NEGATIVE mg/dL Urine Ketones 5 H NEGATIVE mg/dL Urine Occult Blood +- (TRACE) H NEGATIVE Urine Nitrate NEGATIVE NEGATIVE Urine Bilirubin NEGATIVE NEGATIVE mg/dL Urine Urobilinogen 0.2 0.2-1.0 mg/dL Urine Leukocyte Esterase NEGATIVE NEGATIVE Felicia/uL Urine RBC 2-5 H 0-1 /HPF Urine WBC 0-1 0-1 /HPF Urine Squamous Epithelial Cells RARE 0-2 /HPF Urine Bacteria None None Seen /HPF Current Medications Medications (Trade) Dose Ordered Sig/Domenica Route PRN Reason Start Time Stop Time Status Last Admin Dose Admin Acetaminophen (TYLenol 325MG TAB) 650 mg Q4H PRN PO TEMPERATURE GREATER THAN 101.5 12/23/24 06:30 12/24/24 18:36 DC Cholestyramine Resin (Cholestyramine Packet) 1 gm BID PO 12/23/24 21:00 12/24/24 18:36 DC 12/24/24 09:07 1 GM Ketorolac Tromethamine (toRADol) 30 mg Q6H PRN IVP SEVERE PAIN (7-10) 12/23/24 06:30 12/24/24 18:36 DC Lactated Ringer's 1,000 ml @ 75 mls/hr [id number] IV 12/23/24 06:30 12/24/24 18:36 DC 12/24/24 09:10 75 MLS/HR Lactated Ringer's (Lactated Ringers 1000ml) 1,000 ml BOLUS STAT IV 12/23/24 03:10 12/23/24 03:20 DC 12/23/24 03:53 1,000 ML Levofloxacin/ Dextrose 100 ml @ 100 mls/hr Q24H IV 12/23/24 06:30 12/24/24 18:36 DC 12/24/24 05:21 100 MLS/HR Loperamide HCl (Imodium) 2 mg AD PRN PO AFTER EACH LOOSE STOOL 12/23/24 16:30 12/24/24 18:36 DC 12/24/24 17:47 2 MG Magnesium Sulfate 50 ml @ 0 mls/hr PROTOCOL PRN IV low mag level 12/23/24 06:30 12/24/24 18:36 DC 12/24/24 09:11 25 MLS/HR Metronidazole/ Sodium Chloride 100 ml @ 100 mls/hr Q8H6 IVPB 12/23/24 14:00 12/24/24 18:36 DC 12/24/24 05:14 100 MLS/HR Multivitamins Therapeutic (Multivitamin Tablet) 1 tab DAILY PO 12/24/24 09:00 12/24/24 18:36 DC 12/24/24 09:07 1 TAB Ondansetron HCl (zoFRAN 4MG INJ) 4 mg Q6H PRN IVP NAUSEA/VOMITING 12/23/24 06:30 12/24/24 18:36 DC 12/23/24 13:45 4 MG Potassium Chloride 100 ml @ 100 mls/hr AD PRN IV POTASSIUM PROTOCOL 12/23/24 06:30 12/24/24 18:36 DC Potassium Chloride (K-Dur/Klor-Con 20meq) 20 meq AD PRN PO POTASSIUM PROTOCOL 12/23/24 06:30 12/24/24 18:36 DC 12/23/24 17:56 20 MEQ Potassium Chloride (KCl 10% Elixir 20meq/15ml) 20 meq AD PRN PO POTASSIUM PROTOCOL 12/23/24 06:30 12/24/24 18:36 DC Psyllium Hydrophilic Mucilloid (Metamucil) 1 tbs BID PO 12/24/24 09:00 12/24/24 18:36 DC 12/24/24 09:07 1 TBS Diagnostics / Radiology: [COPY/PASTE HERE IF NO REPORTS PLEASE DELETE SECTION] Assessment: Diarrhea Abdominal pain Dilated CBD Plan: Await stool GI PCR NIKKI LUGO RADIOTELEGRAPHER Dec 24, 2024 22:22
[2024-12-25 09:13] LABS: C DIFFICILE TOXIN A/B Not Detected (Not Detected); ENTEROAGGREGATIVE ECOLI Not Detected (Not Detected); GIARDIA LAMBLIA Not Detected (Not Detected); PLESIOMONAS SHIGELOIDES Not Detected (Not Detected); SAPOVIRUS Not Detected (Not Detected); SHIGELLA/ENTEROINVASIVE E COLI Not Detected (Not Detected); VIBRIO Not Detected (Not Detected); VIBRIO CHOLERAE Not Detected (Not Detected)
== END 2024-12-24 18:10 | disposition home or self-care (01) ==
LOC: EDH 01:47 → INTOOBSV 06:28 → EDHIP 06:28 → 3CH 18:20
PROVIDERS: ADMIT Hospitalist; ATTEND Hospitalist
DX: K83.8 Other specified diseases of biliary tract (principal); R10.33 Periumbilical pain; K57.92 Diverticulitis of intestine, part unspecified, without perforation or abscess without bleeding; Z90.49 Acquired absence of other specified parts of digestive tract; Z90.710 Acquired absence of both cervix and uterus; Z88.0 Allergy status to penicillin; Z88.5 Allergy status to narcotic agent; Z88.2 Allergy status to sulfonamides; Z91.040 Latex allergy status
CPT/HCPCS: 96376; 96365; 96366 ×2; 96375; 96367; 99285; 83735 ×2; 80048; 83690; 85025 ×2; 87324; 81001; 36415 ×2; 74176; 87507; 83630; 96361 ×2; 96368; 80053; J3475 ×2; J7120; J3010; J1956 ×2; J2405 ×2; J3490 ×4; G0378 ×3; 96374

== ENCOUNTER 2025-01-10 08:12 | Emergency (ER) | payer OTHER, MEDICARE ==
[~2025-01-10] VITALS: Ht 160 cm; Wt 74.4 kg
[~2025-01-10 08:12] MED LIST changes: +LOPE2 PO; +METR-172 PO; +MULT-1367 PO
--- NOTE | 2025-01-10 08:42 | ERN ---
General Chief Complaint: Eye Problems Stated Complaint: EYE PROBLEM Time Seen by MD: 08:03 Source: patient History of Present Illness Initial Comments Patient is a 69-year-old female coming in complaining of left eye flashing lights at times. She states that she has a similar problem in the right side was evaluated by teacher ballet in his still being evaluated. States that that went away but now is having this presentation on and off for couple of days. Allergies: Coded Allergies: iodine (Unverified Allergy, Severe, 10/11/23) Penicillins (Unverified Allergy, Unknown, 10/11/23) azithromycin (Unverified Allergy, Unknown, 10/11/23) latex (Unverified Allergy, Unknown, 10/11/23) mirabegron (Unverified Allergy, Unknown, 10/11/23) morphine (Unverified Allergy, Unknown, 10/11/23) nitrofurantoin (Unverified Allergy, Unknown, 10/11/23) sulfamethoxazole (Unverified Allergy, Unknown, 10/11/23) trimethoprim (Unverified Allergy, Unknown, 10/11/23) Home Meds Active Scripts Metronidazole (Metronidazole) 500 Mg Tablet, 1 TAB PO TID for 5 Days, #15 TAB 0 Refills Prov:VÍCTOR MICHAEL NP 12/24/24 Reported Medications Multivitamin (Multivitamin) 1 Each Tablet, 1 TAB PO DAILY for 30 Days, #30 TAB 0 Refills 12/23/24 Loperamide HCl (Imodium) 2 Mg Cap, 2 CAP PO Q6H for loose stool for 5 Days, #40 CAP 0 Refills 12/23/24 Cholestyramine (with Sugar) (Cholestyramine Packet) 4 Gram Powd.pack, 1 PACKET PO BID for 30 Days, #30 PACKET 0 Refills 06/23/24 Past Medical History Past Medical History: No Pertinent History Medical History Other: denies pmhx Past Surgical History: Appendectomy, Hysterectomy, Tonsillectomy, Cholecystectomy, Other Surgical History Other: bladder slings x3 Female( History) History: Not Applicable ROS Dictation CONSTITUTIONAL: No chills, no fever, no weakness, no diaphoresis, no malaise. HEAD/FACE: No signs of trauma. EENT: No eye pain, no blurred vision, no tearing, no double vision, no ear pain, no ear discharge, no nose pain, no nasal congestion, no throat pain, no throat swelling, no mouth pain. RESPIRATORY: No cough, no orthopnea, no SOB, no stridor, no wheezing. CARDIOVASCULAR: No chest pain, no edema, no palpitations, no syncope. GASTROINTESTINAL/ABDOMINAL: No abdominal pain, no constipation, no diarrhea, no nausea, no vomiting. GENITOURINARY: No abnormal discharge, no dysuria, no frequent urination, no hematuria. No complaints of pain in the genitals. MUSCULOSKELETAL: No back pain, no gout, no joint pain, no joint swelling, no muscle pain, no muscle stiffness, no neck pain. INTEGUMENTARY: No change in color, no change in hair/nails, no dryness, no lesion, no lumps, no rash. NEUROLOGICAL/PSYCH: No anxiety, not depressed, no emotional problem, no headache, no numbness, no pre-existing deficit, no history of seizures, no tremors, no weakness. HEMATOLOGIC/LYMPHATIC: Not anemic, no history of blood clots, no apparent bleeding, no bruising, glands not swollen. All Systems Negative, Except as Noted. Physical Exam Physical Exam Dictation VITAL SIGNS: Reviewed. GENERAL APPEARANCE: Alert, oriented x3, no acute distress, obese. HEAD AND FACE: Non-traumatic. EYES: PERRL, pink conjunctivas, eyelid no trauma, anterior chamber clear. Visual acuity with correction right eye 20/40 left eye 20/40 both eyes 20/40, without correction right eye 20/70 left eye 22/200 both eyes 20/70 EARS: Pinnas intact and no signs of trauma or erythema. Ear canals clear and no discharge. TMs no erythema. NOSE: No discharge, no bleeding. OROPHARYNX: Mouth normal, teeth no caries, tongue pink. Pharynx clear, no erythema. Tonsils no exudates, no abscesses noted. Mucous membrane moist. NECK: Supple, non-tender, no thyromegaly, no masses, no JVD, no bruits. BREAST: Deferred. CHEST: No tenderness, no crepitus, no paradoxical movement, no retractions. LUNGS: Clear, well-ventilated, symmetric, no rales, no wheezing, no rhonchi, no stridor, good breath sounds bilaterally. HEART: Regular rate, regular rhythm, no murmur, no gallops. VASCULAR: No peripheral edema. ABDOMEN: Soft, positive bowel sounds, nondistended, no guarding, nontender, no rebound, no masses no hepatomegaly, no splenomegaly, no Garza's sign, no hernias. RECTAL: Deferred. GENITAL: Deferred. NEUROLOGICAL: Normal speech, gross motor function intact, gross sensory function intact. MUSCULOSKELETAL: Neck nontender, full range of motion, back nontender, full range of motion. EXTREMITIES: Nontender, full range of motion. SKIN: Color pink, dry, no turgor, no rash, no lacerations, no abrasions, no contusions. LYMPHATICS: Deferred. Results Laboratory and Microbiology Labs Reviewed?: Yes EKG/XRAY/US/CT/MRI CT Scan Comment [place] [address] [address] IMAGING REPORT Signed PATIENT: SUSIE GALVEZ MR#: [id number] : 1955 SEX: F AGE: 69 LOCATION: [facility] ORDER 6 STATUS: [facility] REPORT#: [id number] SERVICE 5 REASON: left eye discomfort ORDERING PHYSICIAN: DEVIN ESTRADA MD PROCEDURE: HEAD WO - CT HEAD/BRAIN W/O CONTRAST Exam: NONCONTRAST CT BRAIN REASON: left eye discomfort. COMPARISON: None. TECHNIQUE: Images are obtained from vertex to the skull base. The exam was performed without IV contrast. FINDINGS: There is normal appearing brain parenchyma. There are no focal mass lesions. There is is no evidence of intracranial hemorrhage or acute stroke. There is mild global atrophy consistent with patient's chronological age Ventricles and sulci appear normal. Posterior fossa and brainstem structures are unremarkable. Paranasal sinuses and remaining extracranial soft tissues appear normal as well. Bilateral hyperostosis frontalis interna. IMPRESSION: 1. No acute intracranial process. CT was performed with one or more following dose reduction techniques: automated exposure control, adjustment of the mA and kv according to patient's size, or use of a iterative reconstruction technique. DICTATED BY: JAILYN GUADARRAMA MD DATE: 01/10/2544 ELECTRONICALLY SIGNED BY: JAILYN GUADARRAMA MD DATE: 01/10/25946 MDM MDM: Differential diagnosis: Retinal detachment, CVA, macular degeneration Rationale: Tests considered and ordered secondary to shared decision making include: Previous outside records reviewed: Old ER visits. Risk of complication and/or morbidity or mortality of patient management: None Medications-Per medication reconciliation Need for hospitalization: Patient does not meet criteria for hospitalization. Patient is a 69-year-old female coming in complaining of random light flashes in the left eye. Patient states that she has had these lytes in the right eye and has been evaluated by teacher ballet. CT of the head and ultrasound of the left eye did not disclose acute findings. Retina was attached. Funduscopic exam did not show any abnormalities. I did advise patient is since the symptoms are not present all the time to follow up with previous teacher ballet. Patient states he will follow up accordingly. ED Course Orders Procedure Category Date Status Time Ct Head/Brain W/O CT 01/10/25 Resulted Contrast 08:36 Us To Localize Fb In US 01/10/25 Taken EYE 10:30 Vital Signs Date Time Temp Pulse Resp B/P (MAP) Pulse Ox O2 Delivery O2 Flow Rate FiO2 01/10/25 10:01 65 18 131/69 98 Room Air* 0 21 01/10/25 08:19 98.2 73 16 127/69 99 Room Air* 0 21 01/10/25 08:14 98.2 73 16 127/69 99 Room Air 0 DX & DISP Disposition: Discharge Departure Impression: Primary Impression: Discomfort of left eye Condition: Stable Additional Instructions: FOLLOW-UP WITH PRIMARY CARE PROVIDER IN 1 TO 2 DAYS. TAKE MEDICATIONS DIRECTED HERE IN THE EMERGENCY ROOM. OKAY TO CONTINUE HOME MEDICATIONS UNLESS OTHERWISE DISCUSSED DURING YOUR VISIT IN THE EMERGENCY ROOM TODAY. RETURN TO YOUR NEAREST EMERGENCY ROOM IF SYMPTOMS WORSEN OR IF THERE IS NO IMPROVEMENT. CALL 911 IF YOU NEED IMMEDIATE ASSISTANCE. TAKE TYLENOL [id number] NEEDED AND IF NO CONTRAINDICATIONS ARE PRESENT. INCREASE ORAL HYDRATION. A WOUND CULTURE OR URINE CULTURE WAS ORDERED HERE IN THE EMERGENCY ROOM DEPARTMENT PLEASE FOLLOW-UP WITH PRIMARY CARE PROVIDER AND ADVISE THEM TO GET REPORTS FROM OUR FACILITY. IF YOU HAD ANY DAVID WRAP/SPLINTS THAT WERE APPLIED HERE, PLEASE DO NOT REMOVE THEM UNTIL YOU SEE YOUR PRIMARY CARE OR SPECIALTY. Referrals: Referrals: SELF,REFERRAL (PCP) HUDSON HERRERA MD Time of Disposition: 11:10 DEVIN ESTRADA MD Jan 10, 2025 08:42
--- NOTE | 2025-01-10 09:47 | HMCIMG ---
Exam: NONCONTRAST CT BRAIN REASON: left eye discomfort. COMPARISON: None. TECHNIQUE: Images are obtained from vertex to the skull base. The exam was performed without IV contrast. FINDINGS: There is normal appearing brain parenchyma. There are no focal mass lesions. There is is no evidence of intracranial hemorrhage or acute stroke. There is mild global atrophy consistent with patient's chronological age Ventricles and sulci appear normal. Posterior fossa and brainstem structures are unremarkable. Paranasal sinuses and remaining extracranial soft tissues appear normal as well. Bilateral hyperostosis frontalis interna. IMPRESSION: 1. No acute intracranial process. CT was performed with one or more following dose reduction techniques: automated exposure control, adjustment of the mA and kv according to patient's size, or use of a iterative reconstruction technique.
--- NOTE | 2025-01-10 11:28 | HMCIMG ---
Exam Type: US TO LOCALIZE FB IN EYE Clinical Information: left eye Comparison: None Findings: The examination is unremarkable. There is no foreign body identified. The retina/choroid/sclera are in place without evidence of retinal detachment. Vitreous chamber appears clear. The lens and anterior chamber as well as the cornea are in their anatomical locations. No extraocular abnormalities. IMPRESSION: Normal examination of the eye. No evidence of foreign body.
[2025-01-10 12:12] VITALS: BP 135/69; PULSE 67; RESP 18; TEMP 98.2; O2SAT 100
== END 2025-01-10 12:17 | disposition home or self-care (01) ==
LOC: EDH 08:12
DX: H57.89 Other specified disorders of eye and adnexa (principal); Z88.0 Allergy status to penicillin; Z88.1 Allergy status to other antibiotic agents; Z88.2 Allergy status to sulfonamides; Z88.5 Allergy status to narcotic agent; Z88.8 Allergy status to other drugs, medicaments and biological substances; Z90.49 Acquired absence of other specified parts of digestive tract; Z90.710 Acquired absence of both cervix and uterus
CPT/HCPCS: 70450; 76529; 99284

== ENCOUNTER 2025-05-20 11:08 | Emergency (ER) | payer MEDICARE, OTHER ==
[~2025-05-20] VITALS: Ht 160 cm; Wt 73.5 kg
--- NOTE | 2025-05-20 11:32 | ERN ---
General Chief Complaint: Abdominal Pain Stated Complaint: x2 weeks RLQ abdominal pain Time Seen by MD: 11:15 Source: EMS History of Present Illness Initial Comments My patient, 70-year-old female, with history of total abdominal colectomy and ileorectal anastomosis, was brought by EMS to the emergency department with complaint of right lower quadrant pain. Patient states that pain started 2 weeks ago and initially it was mild in severity with off and on periods of pain. It has gradually become worse and pain is now constant. It gets worse with coughing, defecating or with sitting. Patient states that she feels better whenever she walks. She denies fever or chills. Timing/Duration: getting worse Severity: severe Allergies: Coded Allergies: iodine (Unverified Allergy, Severe, 10/11/23) Penicillins (Unverified Allergy, Unknown, 10/11/23) azithromycin (Unverified Allergy, Unknown, 10/11/23) latex (Unverified Allergy, Unknown, 10/11/23) mirabegron (Unverified Allergy, Unknown, 10/11/23) morphine (Unverified Allergy, Unknown, 10/11/23) nitrofurantoin (Unverified Allergy, Unknown, 10/11/23) sulfamethoxazole (Unverified Allergy, Unknown, 10/11/23) trimethoprim (Unverified Allergy, Unknown, 10/11/23) Home Meds Active Scripts Metronidazole (Metronidazole) 500 Mg Tablet, 1 TAB PO TID for 5 Days, #15 TAB 0 Refills Prov:[facility] 12/24/24 Reported Medications Multivitamin (Multivitamin) 1 Each Tablet, 1 TAB PO DAILY for 30 Days, #30 TAB 0 Refills 12/23/24 Loperamide HCl (Imodium) 2 Mg Cap, 2 CAP PO Q6H for loose stool for 5 Days, #40 CAP 0 Refills 12/23/24 Cholestyramine (with Sugar) (Cholestyramine Packet) 4 Gram Powd.pack, 1 PACKET PO BID for 30 Days, #30 PACKET 0 Refills 06/23/24 Past Medical History Past Medical History: Constipation, Diverticulitis, Diverticulosis Medical History Other: HEMORRHOIDS, COLON RESECTION Past Surgical History: Appendectomy, Hysterectomy, Tonsillectomy, Cholecystectomy, Other Surgical History Other: bladder slings x3, COLON RESECTION Female( History) History: Not Applicable Constitutional: (-) chills, (-) diaphoresis, (-) fever, (-) malaise, (-) weakness, (-) other documentation EENTM: (-) eye pain, (-) blurred vision, (-) tearing, (-) double vision, (-) ear pain, (-) ear discharge, (-) nose pain, (-) nose congestion, (-) throat pain, (-) Throat swelling, (-) mouth pain, (-) tooth pain, (-) mouth swelling, (-) other documentation Respiratory: (-) cough, (-) orthopnea, (-) short of breath, (-) stridor, (-) wheezing, (-) other documentation Cardiovascular: (-) chest pain, (-) edema, (-) palpitations, (-) syncope, (-) dyspnea on exertion, (-) other documentation Gastrointestinal/Abdominal: (+) nausea, (+) abdominal pain Genitourinary: (-) vaginal discharge, (-) vaginal bleeding, (-) dysuria, (-) frequency, (-) hematuria, (-) pain, (-) other documentation Musculoskeletal: (+) back pain; (-) Neck pain, (-) Flank Pain, (-) joint pain, (-) joint swelling, (-) muscle pain, (-) muscle stiffness, (-) gout, (-) other documentation Skin: (-) laceration, (-) contusion, (-) abrasion, (-) abscess, (-) rash, (-) change in color, (-) change in hair, (-) change in nails, (-) diaphoresis, (-) dryness, (-) other documentation Neuro: (-) altered mental status, (-) headache, (-) syncope, (-) paralysis, (-) numbness, (-) seizure, (-) pre-existing deficit, (-) tremors, (-) weakness, (-) dizziness, (-) slurred speech, (-) vertigo, (-) other documentation Physical Exam General Appearance: (+) moderate distress Orientation: (+) alert, (+) oriented x 3 Head/Face Trauma: No Eye: bilateral eye normal inspection Ear, Nose, Throat: (+) hearing grossly normal, (+) normal ENT inspection, (+) moist mucous membraine, (+) normal pharynx Neck: (+) normal inspection, (+) supple, (+) full range of motion Respiratory: (+) chest non-tender, (+) lungs clear, (+) well ventilated Heart: (+) regular, (+) no gallop Vascular: (+) no edema Gastrointestinal: (+) soft, (+) tender Back: (+) normal inspection, (+) no CVA tenderness, (+) no vertebral tenderness Extremities: (+) normal range of motion, (+) non-tender, (+) normal inspection Neurologic/Psychiatric: (+) normal speech, (+) no motor defecits, (+) no sensory deficits, (+) normal gait, (+) normal mood/affect Skin: (+) normal color Results Laboratory and Microbiology Lab and Micro Result Laboratory Tests Test 05/20/25 11:38 05/20/25 11:47 White Blood Count 7.4 K/uL (4.8-10.8) Red Blood Count 4.21 MIL/uL (4.00-5.50) Hemoglobin 12.4 g/dL (12.0-16.0) Hematocrit 36.8 % (36-48) Mean Corpuscular Volume 87.4 fL (79-99) Mean Corpuscular Hemoglobin 29.5 pg (27.0-33.0) Mean Corpuscular Hemoglobin Concent 33.7 g/dL (32.0-36.0) Red Cell Distribution Width 13.0 % (11.0-15.5) Platelet Count 186 K/uL (130-400) Mean Platelet Volume 9.4 fL (7.5-10.5) Nucleated Red Blood Cells 0.0 % (0.0-0.19) Sodium Level 141 mmol/L (136-145) Potassium Level 4.0 mmol/L (3.5-5.1) Chloride Level 105 mmol/L (101-111) Carbon Dioxide Level 25 mmol/L (21-32) Blood Urea Nitrogen 13 mg/dL (7-18) Creatinine 0.5 mg/dL (0.5-1.0) Glomerular Filtration Rate Calc 101 mL/min (>90) Random Glucose 89 mg/dL (70-105) Total Calcium 9.0 mg/dL (8.5-10.1) Urine Color LIGHT-YELLOW (YELLOW) Urine Appearance CLEAR (CLEAR) Urine pH 5.0 (5.0-8.0) Urine Specific [place] 1.009 (1.001-1.031) Urine Protein NEGATIVE mg/dL (NEGATIVE) Urine Glucose (UA) NEGATIVE mg/dL (NEGATIVE) Urine Ketones 5 mg/dL (NEGATIVE) H Urine Occult Blood NEGATIVE (NEGATIVE) Urine Nitrate NEGATIVE (NEGATIVE) Urine Bilirubin NEGATIVE mg/dL (NEGATIVE) Urine Urobilinogen 0.2 mg/dL (0.2-1.0) Urine Leukocyte Esterase NEGATIVE Felicia/uL EKG/XRAY/US/CT/MRI CT Scan Comment [place] [id number] [address] IMAGING REPORT Signed PATIENT: SUSIE GALVEZ MR#: [id number] : 1955 SEX: F AGE: 70 LOCATION: [facility] ORDER 23 STATUS: [facility] REPORT#: [id number] SERVICE 22 REASON: right lower quadrant pain ORDERING PHYSICIAN: BRIGIDA SANCHEZ MD PROCEDURE: ABD PEL WO - CT ABDOMEN/PELVIS W/O CONTRAST EXAM: CT Abdomen and Pelvis Without IV contrast CLINICAL HISTORY: right lower quadrant pain TECHNIQUE: Axial computed tomography images of the abdomen and pelvis without intravenous contrast. CONTRAST: No IV contrast. COMPARISON: None provided. FINDINGS: LUNG BASES: The lung bases appear clear. No pleural effusions are seen. LIVER: Unremarkable. GALLBLADDER AND BILE DUCTS: Cholecystectomy clips. PANCREAS: Unremarkable. SPLEEN: Unremarkable. ADRENAL GLANDS: Unremarkable. KIDNEYS, URETERS, AND BLADDER: The kidneys appear within normal limits. There is no hydronephrosis or hydroureter. No urinary calculi are seen. STOMACH AND BOWEL: Suspected hemicolectomy of most of the colon. Small bowel sigmoid colon anastomosis right lower quadrant without bowel wall dilatation. APPENDIX: No evidence of acute appendicitis on CT examination. PERITONEUM: No free fluid. No free air. LYMPH NODES: No lymphadenopathy is evident. REPRODUCTIVE: Unremarkable as visualized. VASCULATURE: No evidence of abdominal aortic aneurysm. BONES: No aggressive appearing osseous lesion. No acute osseous pathology evident. MISCELLANEOUS: Hernia repair changes. Pelvic stimulator is noted. Multilevel degenerative disc disease with vacuum disc phenomenon and disc height loss. IMPRESSION: No acute intraabdominal or pelvic pathology. Suspected hemicolectomy of most of the colon. Recommend correlation with surgical history. Small bowel sigmoid colon anastomosis in the right lower quadrant without bowel wall dilatation or wall thickening.. /[place] DICTATED BY: ELSA AMBRIZ DO DATE: 05/20/251420 ELECTRONICALLY SIGNED BY: ELSA AMBRIZ DO DATE: 05/20/251420 [facility] MDM: Differential diagnosis:, abdominal muscle strain, abdominal wall strain Rationale: Tests considered and ordered secondary to shared decision making include: Previous outside records reviewed: Old ER visits. Risk of complication and/or morbidity or mortality of patient management: None Medications-Per medication reconciliation Need for hospitalization: Patient does not meet criteria for hospitalization. Patient is a 70-year-old female coming in complaining of abdominal pain. She has had surgeries in the past and states that she had the most recent one about a year ago since then she has been having on and off discomfort. Laboratory workup including CT did not disclose any acute findings. Patient will be discharged in stable condition I will refer back to Dr. Aleks Raymond who did her previous surgery for ongoing evaluation. ED Course Orders Procedure Category Date Status Time Cbc Without LAB 05/20/25 Complete Differential 11:21 Basic Metabolic Panel LAB 05/20/25 Complete 11:21 Ketorolac PHA 05/20/25 Complete Tromethamine 30mg/Ml 11:30 Ct Abdomen/Pelvis W/O CT 05/20/25 Resulted Contrast 11:23 Urinalysis LAB 05/20/25 In Process W/Microscopic 13:24 Current Medications Medications (Trade) Dose Ordered Sig/Domenica Route PRN Reason Start Time Stop Time Status Last Admin Dose Admin Ketorolac Tromethamine (toRADol) 30 mg ONCE ONCE IM 05/20/25 11:30 05/20/25 11:31 DC Vital Signs Date Time Temp Pulse Resp B/P (MAP) Pulse Ox O2 Delivery O2 Flow Rate FiO2 05/20/25 11:45 98.1 65 20 131/77 99 Room Air* 0 21 05/20/25 11:10 98.8 70 14 133/79 95 Room Air 0 DX & DISP Disposition: Discharge Departure Impression: Primary Impression: Abdominal wall strain Condition: Stable Additional Instructions: FOLLOW-UP WITH PRIMARY CARE PROVIDER IN 1 TO 2 DAYS. TAKE MEDICATIONS DIRECTED HERE IN THE EMERGENCY ROOM. OKAY TO CONTINUE HOME MEDICATIONS UNLESS OTHERWISE DISCUSSED DURING YOUR VISIT IN THE EMERGENCY ROOM TODAY. RETURN TO YOUR NEAREST EMERGENCY ROOM IF SYMPTOMS WORSEN OR IF THERE IS NO IMPROVEMENT. CALL 911 IF YOU NEED IMMEDIATE ASSISTANCE. TAKE TYLENOL [id number] NEEDED AND IF NO CONTRAINDICATIONS ARE PRESENT. INCREASE ORAL HYDRATION. A WOUND CULTURE OR URINE CULTURE WAS ORDERED HERE IN THE EMERGENCY ROOM DEPARTMENT PLEASE FOLLOW-UP WITH PRIMARY CARE PROVIDER AND ADVISE THEM TO GET REPORTS FROM OUR FACILITY. IF YOU HAD ANY DAVID WRAP/SPLINTS THAT WERE APPLIED HERE, PLEASE DO NOT REMOVE THEM UNTIL YOU SEE YOUR PRIMARY CARE OR SPECIALTY. Referrals: Referrals: IKE WALDRON (PCP) ALEKS RAYMOND MD Time of Disposition: 14:47 BRIGIDA SANCHEZ MD May 20, 2025 11:32 DEVIN ESTRADA MD May 20, 2025 13:25
[2025-05-20 11:44] LABS: NUCLEATED RED BLOOD CELLS 0.0 % (0.0-0.19); PLATELET COUNT (AUTO) 186.0 K/uL (130-400); RED BLOOD CELL COUNT(AUTO) 4.21 MIL/uL (4.00-5.50); RED CELL DISTRIBUTION WIDTH 13.0 % (11.0-15.5); WHITE BLOOD COUNT (AUTO) 7.4 K/uL (4.8-10.8)
[2025-05-20 11:57] LABS: CREATININE 0.5 mg/dL (0.5-1.0); GLOMERULAR FILTR. RATE CALC 101.0 mL/min (>90); GLUCOSE,RANDOM 89.0 mg/dL (70-105); SODIUM SERUM 141.0 mmol/L (136-145); UREA NITROGEN, BLOOD 13.0 mg/dL (7-18)
--- NOTE | 2025-05-20 13:21 | HMCIMG ---
EXAM: CT Abdomen and Pelvis Without IV contrast CLINICAL HISTORY: right lower quadrant pain TECHNIQUE: Axial computed tomography images of the abdomen and pelvis without intravenous contrast. CONTRAST: No IV contrast. COMPARISON: None provided. FINDINGS: LUNG BASES: The lung bases appear clear. No pleural effusions are seen. LIVER: Unremarkable. GALLBLADDER AND BILE DUCTS: Cholecystectomy clips. PANCREAS: Unremarkable. SPLEEN: Unremarkable. ADRENAL GLANDS: Unremarkable. KIDNEYS, URETERS, AND BLADDER: The kidneys appear within normal limits. There is no hydronephrosis or hydroureter. No urinary calculi are seen. STOMACH AND BOWEL: Suspected hemicolectomy of most of the colon. Small bowel sigmoid colon anastomosis right lower quadrant without bowel wall dilatation. APPENDIX: No evidence of acute appendicitis on CT examination. PERITONEUM: No free fluid. No free air. LYMPH NODES: No lymphadenopathy is evident. REPRODUCTIVE: Unremarkable as visualized. VASCULATURE: No evidence of abdominal aortic aneurysm. BONES: No aggressive appearing osseous lesion. No acute osseous pathology evident. MISCELLANEOUS: Hernia repair changes. Pelvic stimulator is noted. Multilevel degenerative disc disease with vacuum disc phenomenon and disc height loss. IMPRESSION: No acute intraabdominal or pelvic pathology. Suspected hemicolectomy of most of the colon. Recommend correlation with surgical history. Small bowel sigmoid colon anastomosis in the right lower quadrant without bowel wall dilatation or wall thickening.. /[place]
[2025-05-20 14:37] LABS: APPEARANCE,URINE CLEAR (CLEAR); GLUCOSE, URINE (UA) NEGATIVE (NEGATIVE); LEUKOCYTE ESTERASE ,URINE NEGATIVE Leu/uL (NEGATIVE); NITRATE,URINE NEGATIVE (NEGATIVE); OCCULT BLOOD,URINE NEGATIVE (NEGATIVE)
[2025-05-20 14:44] LABS: SQUAMOUS EPITHELIAL CELL,UR RARE /HPF (0-2)
[2025-05-20 15:24] VITALS: BP 142/62; PULSE 78; RESP 18; TEMP 98.3; O2SAT 99
== END 2025-05-20 15:26 | disposition home or self-care (01) ==
LOC: EDH 11:08
DX: S39.011A Strain of muscle, fascia and tendon of abdomen, initial encounter (principal); Z88.0 Allergy status to penicillin; Z88.1 Allergy status to other antibiotic agents; Z88.2 Allergy status to sulfonamides; Z88.5 Allergy status to narcotic agent; Z88.8 Allergy status to other drugs, medicaments and biological substances; Z90.49 Acquired absence of other specified parts of digestive tract; Z90.710 Acquired absence of both cervix and uterus; Z91.040 Latex allergy status; X58.XXXA Exposure to other specified factors, initial encounter; Y93.89 Activity, other specified; Y92.89 Other specified places as the place of occurrence of the external cause; Y99.8 Other external cause status
CPT/HCPCS: 99285; 74176; 80048; 85027; 81001; 36415; 96372; J1885; 99282